=== PATIENT | male | born 1970 | race Caucasian/White ===

== ENCOUNTER 2019-08-30 14:03 | Inpatient (IN) | payer MEDICAID ==
[~2019-08-30] VITALS: Ht 152.4 cm; Wt 68.9 kg
[2019-08-30 14:32] VITALS: BP 100/64
--- NOTE | 2019-08-30 14:48 | NUR ---
49 Y/O M C/C ABDOMINAL PAIN/VOMITING X3 DAYS. PT ALSO COMPLAINTS OF DIZZINESS/BURNING SENSATION WHEN URINATING. PT NKA. HX DM. RX METFORMIN,GLIPIZIDE. PT HAS BEEN COMPLIANT WITH RX. PT NOT TAKEN FLU SHOT; NO ONE SICK AT HOME. SIDE RAIL X1.
[2019-08-30] MEDS ORDERED: NACL 0.9% 1,000 ML IV SCH (15:13)
[2019-08-30] MEDS ORDERED: KETOROLAC 15 MG/ML VIAL IVP ONE (15:15)
[2019-08-30] MEDS ORDERED: ONDANSETRON 4 MG/2 ML VIAL IVP ONE (15:15)
[2019-08-30 15:32] LABS: HEMATOCRIT 40.9 % (36-52); HEMOGLOBIN 13.8 g/dL (12.0-18.0); MEAN CORPUSCULAR HEMOGLOBIN 29 pg (27-31); MEAN CORPUSCULAR HGB CONC 34 g/dL (33-37); MEAN CORPUSCULAR VOLUME 86.4 fL (80-94); PLATELET COUNT (AUTO) 215 K/uL (140-450); RED BLOOD CELL COUNT(AUTO) 4.74 MIL/uL (4.20-6.10); RED CELL DISTRIBUTION WIDTH 12.6 % (11.6-13.7); WHITE BLOOD COUNT (AUTO) 21.8 K/uL (4.8-10.8)
[2019-08-30 15:37] LABS: BILIRUBIN,URINE NEGATIVE (NEGATIVE); BLOOD, URINE 1+ (NEGATIVE); LEUKOCYTE ESTERASE ,URINE TRACE (NEGATIVE); NITRITE, URINE POSITIVE (NEGATIVE); UGLUCOSE 3+ (NEGATIVE)
[2019-08-30 15:39] LABS: APPEARANCE,URINE CLOUDY (CLEAR); COLOR,URINE YELLOW (YELLOW)
[2019-08-30 15:48] LABS: RBC,URINE 0-5 /HPF (0-5); WBC,URINE TOO MANY TO COUNT /HPF (0-5)
[2019-08-30 15:57] LABS: LYMPHOCYTES % (MANUAL) 1 % (20-46); MONOCYTES % (MANUAL) 1 % (5-12); PROTHROMBIN TIME 10.1 secs (10.8-13.4)
[2019-08-30 16:00] LABS: ALBUMIN 2.5 g/dL (3.4-5.0); ANION GAP 15.6 (8-16); CREATININE 1.3 mg/dL (0.7-1.3); POTASSIUM 4.6 mmol/L (3.5-5.1); TOTAL BILIRUBIN 0.8 mg/dL (0.0-1.0)
[2019-08-30] MEDS ORDERED: INSULIN REGULAR, HUMAN 100 UNIT/ML VIAL SUBQ ONE (16:40)
[2019-08-30] MEDS ORDERED: PIPERACILLIN/TAZOBACTAM 3.375 GM in DEXTROSE 5% 50 ML IV ONE (16:40)
[2019-08-30] MEDS ORDERED: NACL 0.9% 1,000 ML IV ONE (16:45)
[2019-08-30] MEDS ORDERED: PIPERACILLIN/TAZOBACTAM 3.375 GM VIAL IV ONE (17:03)
[2019-08-30] MEDS ORDERED: DEXTROSE 50% 50 ML SYR IVP PRN (17:15)
[2019-08-30] MEDS ORDERED: DOCUSATE SODIUM 100 MG GELCAP PO PRN (17:15)
[2019-08-30 18:10] LABS: AMYLASE 15 U/L (25-115); LIPASE 77 U/L (73-393); MAGNESIUM 2.6 mg/dL (1.8-2.4); PHOSPHORUS 2.3 mg/dL (2.5-4.9); THYROID STIMULATING HORMONE 0.55 uIU/mL (0.34-3.74)
[2019-08-30] MEDS ORDERED: BISACODYL 10 MG SUPP RC PRN (18:10)
[2019-08-30] MEDS ORDERED: GLIP10TA3 PO (18:20)
[2019-08-30] MEDS ORDERED: METF1000 PO (18:20)
--- NOTE | 2019-08-30 18:20 | NUR ---
RECEIVED BEDSIDE REPORT FROM ED NURSE. PT RESTING IN BED. ABLE TO MAKE NEEDS KNOWN. RESPIRATIONS EVEN AND UNLABORED WITH NO SOB OR RESPIRATORY DISTRESS. SKIN WARM AND DRY TO TOUCH. IV SITES IN LAC 20G, L HAND 20G, AND R HAND 20G IS CLEAN, DRY, AND INTACT. VITAL SIGNS GATHERED: 111/63 BP, 120HR, 102.3 TEMP, AND 94% SPO2 ON RA. SAFETY MEASURES IN PLACE. WILL CONTINUE TO MONITOR
--- NOTE | 2019-08-30 18:37 | NUR ---
Patient will be admitted to care of [facility]. Admited to TELEMETRY. Will go to room 104B. Belongings list completed. Report to KASSANDRA NAGY.
[2019-08-30 18:57] LABS: LACTATE DEHYDROGENASE 262 U/L (85-227)
[2019-08-30 19:04] LABS: BARBITURATE, URINE NEG. ng/ml (NEG <=200); BENZODIAZEPINE, URINE NEG. ng/mL (NEG <=200); CANNABINOID, URINE NEG. ng/mL (NEG <=50); COCAINE, URINE NEG. ng/mL (NEG <=300); OPIATE, URINE NEG. ng/mL (NEG <=2000); PHENCYCLIDINE SCREEN,URINE NEG. ng/mL (NEG <=25)
--- NOTE | 2019-08-30 19:25 | NUR ---
RECEIVED PT FROM AM SHIFT,HASEEB, ARRIVED IN UNIT EARLIER ENDORSED. PT SLEEPING AT THIS TIME, W/ FAMILY AT BEDSIDE. HISTORY AND PHYSICAL DONE, PT STILL SLEEPING THOUGH. AND SON ANSWERED QUESTIONS. PLACED PT ON LOW BED POSITION. CALL LIGHT WITHIN REACH. POC REVIEWED W/ FAMILY Addendum: 08/30/19 at 2334 by Natalia Patrick RN DELETE NOTE
[2019-08-30] MEDS ORDERED: MORPHINE SULFATE 2 MG/ML SYR IVP SCH (19:30)
--- NOTE | 2019-08-30 19:35 | NUR ---
ENDORSED AT BEDSIDE TO NIGHTSHIFT NURSE. PT RESTING IN BED. RESPIRATIONS EVEN AND UNLABORED WITH NO SOB OR RESPIRATORY DISTRESS. PT IS STABLE.
--- NOTE | 2019-08-30 19:36 | NUR ---
RECEIVED PT FROM AM SHIFT,HASEEB, ARRIVED IN UNIT EARLIER ENDORSED. PT SLEEPING AT THIS TIME, W/ FAMILY AT BEDSIDE. HISTORY AND PHYSICAL DONE, PT STILL SLEEPING THOUGH. AND SON ANSWERED QUESTIONS. PLACED PT ON LOW BED POSITION. CALL LIGHT WITHIN REACH. POC REVIEWED W/ FAMILY
[2019-08-30 21:00] VITALS: BP 111/58
[2019-08-30] MEDS: BLOOD GLUCOSE MONITORING 1 DEV DEV FS SCH (21:00)
[2019-08-30] MEDS ORDERED: cefTRIAXone 1,000 MG VIAL ONE (21:00)
--- NOTE | 2019-08-30 21:00 | NUR ---
VITAL SIGNS TAKEN; PT NOW AWAKE AND C/O OF PAIN IN ABDOMEN 04/11 WILL ADMINISTER PAIN MEDS. PT FEBRILE 102 NOTED. WILL ADMINISTER TYLENOL. PLACED COLD PACKS UNDER PT'S ARMPITS FOR COOLING MEASURES. Addendum: 08/31/19 at 0345 by Natalia Patrick RN AMEND PAIN TO SUPRAPUBIC PAIN Addendum: 08/31/19 at 0514 by Natalia Patrick RN AMEND PAIN TO ABDOMINAL PAIN RIGHT 04/11
[2019-08-30] MEDS: NACL 0.9% 1,000 ML IV SCH ×2 (21:07→21:15)
--- NOTE | 2019-08-30 21:07 | NUR ---
ACKNIWLEDGED NS AT 120 ML PER HR NO BAR CODE W/ PAT, CHARGE NURSE
--- NOTE | 2019-08-30 21:12 | NUR ---
ONE DOSE OF MORPHINE GIVEN NOW. PT HAS JUST AWAKENED NOW, AND C/O OF 04/11 PAIN
--- NOTE | 2019-08-30 21:15 | NUR ---
RECHEKED AGAIN THE NS W/O MART CODE W/ CHARGE NURSE. STILL NOT SCANNING. MANUAL CODE DONE
[2019-08-30] MEDS: metFORMIN 500 MG TAB PO SCH (21:21)
[2019-08-30] MEDS: ATORVASTATIN 20 MG TAB PO SCH (21:22)
[2019-08-30] MEDS: glipiZIDE 10 MG TAB PO SCH (21:22)
[2019-08-30] MEDS: ACETAMINOPHEN 325 MG TAB PO PRN (21:23)
[2019-08-30] MEDS: INSULIN LISPRO SLIDING SCALE 100 UNITS/ML VIAL SUBQ PRN (22:03)
--- NOTE | 2019-08-30 23:35 | NUR ---
PT MORE COMFORTABLE, TEMP RECHECKED AND WENT DOWN TO 99.8 F. WILL MONITOR PATIENT.
[2019-08-30 23:41] VITALS: BP 112/60
[2019-08-31] MEDS: BLOOD GLUCOSE MONITORING 1 DEV DEV FS SCH ×6 (01:00→20:03)
[2019-08-31] MEDS: INSULIN LISPRO SLIDING SCALE 100 UNITS/ML VIAL SUBQ PRN ×6 (01:28→20:24)
[2019-08-31] MEDS: NACL 0.9% 1,000 ML IV SCH ×3 (01:32→18:12)
--- NOTE | 2019-08-31 02:00 | NUR ---
CHECKED ON PATIENT COMFORTABLE SLEEPING
[2019-08-31] MEDS: ACETAMINOPHEN 325 MG TAB PO PRN ×2 (05:08→12:06)
[2019-08-31] MEDS: HYDROcodone/APAP 5/325 MG 1 TAB TAB PO PRN ×3 (05:09→14:28)
[2019-08-31 06:00] VITALS: BP 131/75
[2019-08-31 07:18] LABS: BASOPHILS # (AUTO) 0.1 K/uL (0.00-0.22); BASOPHILS % (AUTO) 0.3 % (0.0-2.0); HEMATOCRIT 36.2 % (36-52); HEMOGLOBIN 12.3 g/dL (12.0-18.0); LYMPHOCYTES # (AUTO) 0.6 K/uL (2.0-11.5); LYMPHOCYTES % (AUTO) 3.4 % (20.5-51.1); MEAN CORPUSCULAR HEMOGLOBIN 29 pg (27-31); MEAN CORPUSCULAR HGB CONC 34 g/dL (33-37); MEAN CORPUSCULAR VOLUME 86.1 fL (80-94); NEUTROPHILS # (AUTO) 15.8 K/uL (1.8-7.7); NEUTROPHILS % (AUTO) 90.3 % (42.2-75.2); PLATELET COUNT (AUTO) 179 K/uL (140-450); RED CELL DISTRIBUTION WIDTH 12.7 % (11.6-13.7); WHITE BLOOD COUNT (AUTO) 17.5 K/uL (4.8-10.8)
--- NOTE | 2019-08-31 07:20 | NUR ---
RECEIVED REPORT FROM NIGHT NURSE. PT IN STABLE CONDITION, AAOX4, NO DISTRESS NOTED, REPORTS LOWER RIGHT ABDOMINAL PAIN. RESPIRATIONS EVEN AND UNLABORED ON ROOM AIR. IV IN PLACE PATENT AND ASYMPTOMATIC INFUSING PER ORDER IN R H 20G. IV PRESENT IN L AC 20G AND L H 20G SALINE LOCKED. FAMILY MEMBER AT THE BEDSIDE. SAFETY MEASURES IN PLACE. CALL LIGHT WITHIN REACH, BED IN LOW POSITION. WILL CONTINUE TO MONITOR.
--- NOTE | 2019-08-31 07:20 | NUR ---
ENDORSED TO NEXT NURSE FOR CONTINUITY OF CARE, STILL FEBRILE
[2019-08-31 07:24] LABS: MAGNESIUM 2.5 mg/dL (1.8-2.4)
[2019-08-31] MEDS: LACTOBACILLUS RHAMNOSUS GG 1 EACH CAP PO SCH (08:29)
[2019-08-31] MEDS: glipiZIDE 10 MG TAB PO SCH ×2 (08:29→20:25)
[2019-08-31] MEDS: metFORMIN 500 MG TAB PO SCH ×2 (08:29→20:25)
--- NOTE | 2019-08-31 08:29 | NUR ---
PATIENT HAS BEEN SCREENED AND CATEGORIZED HIGH NUTRITION RISK. PATIENT WILL BE SEEN WITHIN 1-2 DAYS OF ADMISSION. 08/31/19-09/01/[address]
[2019-08-31 08:47] LABS: ANION GAP 12.9 (8-16); CREATININE 1.1 mg/dL (0.7-1.3); POTASSIUM 3.9 mmol/L (3.5-5.1)
[2019-08-31 08:56] LABS: CHOL/HDL RATIO 11.6 (1-4.5)
--- NOTE | 2019-08-31 09:42 | NUR ---
MEDICATIONS ADMINISTERED PER ORDER. PT TOLERATED WELL, NO DISTRESS NOTED. SAFETY MEASURES IN PLACE, CALL LIGHT WITHIN REACH, WILL CONTINUE TO MONITOR.
--- NOTE | 2019-08-31 12:04 | NUR ---
PT VITAL SIGNS MONITORED AT THIS TIME. O2 SAT WAS 90%. PLACED PT ON 3L O2 VIA NC, O2 SAT IS 95%. PT IN STABLE CONDITION. DENIES PAIN. WILL CONTINUE TO MONITOR.
--- NOTE | 2019-08-31 13:54 | NUR ---
08/31/19 RD INITIAL ASSESSMENT COMPLETED PLEASE REFER TO NUTRITION ASSESSMENT UNDER CARE ACTIVITY FOR ESTIMATED NUTRITIONAL NEEDS. 1. CONTINUE CCHO 60GM DIET TOLERATED 2. DIET HEALTH SHAKE WILL BE GIVEN WITH MEALS 3. IF PO INTAKE CONTINUES <75% RECOMMEND GLUCERNA BID 4. RD TO FOLLOW-UP 3-5 DAYS, MODERATE RISK PHILL CAS[address] RD
--- NOTE | 2019-08-31 14:22 | NUR ---
PT PRESENTS A TEMPERATURE OF 101.1, WILL MEDICATE WITH TYLENOL FOR FEVER. FAMILY AT THE BEDSIDE.
[2019-08-31 14:24] VITALS: BP 169/75
[2019-08-31] MEDS: ONDANSETRON 4 MG/2 ML VIAL IM/IVP PRN ×3 (14:29→19:51)
[2019-08-31] MEDS ORDERED: KETOROLAC 15 MG/ML VIAL IM PRN (15:00)
[2019-08-31] MEDS: KETOROLAC 30 MG/ML VIAL IVP PRN (15:57)
--- NOTE | 2019-08-31 16:12 | NUR ---
PT TEMPERATURE CONTINUES TO RISE TO 101.9. MD ORDERED IV TORADOL FOR MANAGEMENT OF FEVER. SAFETY MEASURES IN PLACE. CALL LIGHT WITHIN REACH, WILL CONTINUE TO MONITOR.
--- NOTE | 2019-08-31 18:24 | NUR ---
OFFERED PT FOOD TRAY. TEMP HAS FALLEN TO 99.1. WILL CONTINUE TO MONITOR.
--- NOTE | 2019-08-31 19:30 | NUR ---
REPORT GIVEN TO NIGHT NURSE FOR CONTINUITY OF CARE.
--- NOTE | 2019-08-31 19:31 | NUR ---
RECEIVED REPORT FROM AM LEAH, SHAYAN. AAOX4, AMBULATORY, WITH LOWER RIGHT ABDOMINAL PAIN WILL MEDICATE. RESPIRATIONS EVEN AND UNLABORED ON ROOM AIR. WITH IVF ON THE R AC INFUSING AT 120 ML/HR. WITH IV SITE IN L AC 20G AND L H 20G SALINE LOCKED. FAMILY MEMBERS AT THE BEDSIDE. SAFETY MEASURES IN PLACE. CALL LIGHT WITHIN REACH, BED IN LOW POSITION. WILL CONTINUE TO MONITOR.
--- NOTE | 2019-08-31 19:47 | NUR ---
BAR CODE OF CART 2 COW MACHINE NOT WORKING. DID MANUAL CODING. WILL REPORT
[2019-08-31] MEDS: MORPHINE SULFATE 2 MG/ML SYR IVP PRN (19:50)
--- NOTE | 2019-08-31 19:51 | NUR ---
PT VOMITED X 2 MEDIUM AMOUNT WITH SOLID FOOD CONTENTS. GIVEN ONDASETRON. GAVE HEALTH TEACHINGS NO ORAL FLUIDS/ FOOD YET FOR NOW UNTIL SYMPTOMS SUBSIDE
[2019-08-31 20:00] VITALS: BP 137/63
--- NOTE | 2019-08-31 20:04 | NUR ---
RECEIVED FROM LAB JAZMYNE, BLOOD CULTURE- GRAM NEGATIVE RODS/AEROBIC . DR. CORREIA AWARE. TO INFORM DR. SÁNCHEZ
[2019-08-31] MEDS: ATORVASTATIN 20 MG TAB PO SCH (20:25)
--- NOTE | 2019-08-31 23:22 | NUR ---
PT SLEEPING, NO COMPLAINTS AT THIS TIME
[2019-09-01] VITALS: BP 143/57
[2019-09-01] MEDS: BLOOD GLUCOSE MONITORING 1 DEV DEV FS SCH ×7 (00:21→23:42)
[2019-09-01] MEDS: INSULIN LISPRO SLIDING SCALE 100 UNITS/ML VIAL SUBQ PRN ×5 (00:23→20:56)
[2019-09-01] MEDS: NACL 0.9% 1,000 ML IV SCH ×4 (01:55→21:30)
--- NOTE | 2019-09-01 02:00 | NUR ---
CHANGED IVF OF PATIENT, PT ASLEEP BUT EASILY AWAKENED NO COMPLAINTS AT THIS TIME. NO RESPIRATORY DISTRESS
--- NOTE | 2019-09-01 02:54 | NUR ---
PT C/O OF PAIN 01/09 R ABD PAIN ALSO RUNNING A TEMP OF 102. 7. WILL ADMINISTER NORCO.
--- NOTE | 2019-09-01 02:55 | NUR ---
PT NAUSEOUS, WILL ADMINISTER ONDANSETRON (ZOFRAN).
[2019-09-01] MEDS: HYDROcodone/APAP 5/325 MG 1 TAB TAB PO PRN ×3 (03:00→15:03)
[2019-09-01 04:00] VITALS: BP 142/56
--- NOTE | 2019-09-01 04:00 | NUR ---
FREQUENT ROUNDING DONE; TEMP AT 99.5 AFTER ADMINISTRATION OF NORCO Addendum: 09/01/19 at 0752 by Natalia Patrick RN AMEND TO 99.3
--- NOTE | 2019-09-01 06:58 | NUR ---
PT AWAKE O X 4. WILL ENDORSE TO NEXT SHIFT. MONITOR FOR FEVER
--- NOTE | 2019-09-01 06:59 | NUR ---
DR. CORREIA AWARE THAT THE KETOROLAC WAS NOT GIVEN, PT HAD ABDOMINAL PAIN AT THE SAME TIME SO I GAVE THE NORCO, TEMP WAS RECHECKED AND IT WENT DOWN TO 99.3.F
--- NOTE | 2019-09-01 07:20 | NUR ---
RECEIVED REPORT FROM NIGHT NURSE. PT IN STABLE CONDITION. PT HAS RIGHT ABDOMINAL PAIN, NO DISTRESS NOTED AT THIS TIME. IV IN PLACE R HAND 20G PATENT ASYMPTOMATIC AND INSFUSING PER ORDER. LHAND 20G AND LEFT AC 20G PATENT AND ASYMPTOMATIC SALINE FLUSHED, SALINE LOCKED. RESPIRATIONS EVEN AND UNLABORED ON ROOM AIR. BED IN LOW POSITION, SAFETY MEASURES IN PLACE, CALL LIGHT WITHIN REACH. WILL CONTINUE TO MONITOR.
[2019-09-01 07:33] LABS: BASOPHILS # (AUTO) 0.1 K/uL (0.00-0.22); BASOPHILS % (AUTO) 0.6 % (0.0-2.0); EOSINOPHILS # (AUTO) 0.1 K/uL (0-0.4); EOSINOPHILS % (AUTO) 0.8 % (0.0-4.0); HEMATOCRIT 35.9 % (36-52); LYMPHOCYTES # (AUTO) 0.9 K/uL (2.0-11.5); LYMPHOCYTES % (AUTO) 5.2 % (20.5-51.1); MEAN CORPUSCULAR HEMOGLOBIN 29 pg (27-31); MEAN CORPUSCULAR HGB CONC 33 g/dL (33-37); MEAN CORPUSCULAR VOLUME 86.5 fL (80-94); MONOCYTES # (AUTO) 1.3 K/uL (0.8-1.0); MONOCYTES % (AUTO) 7.8 % (1.7-9.3); NEUTROPHILS # (AUTO) 14.3 K/uL (1.8-7.7); NEUTROPHILS % (AUTO) 85.6 % (42.2-75.2); PLATELET COUNT (AUTO) 168 K/uL (140-450); RED BLOOD CELL COUNT(AUTO) 4.16 MIL/uL (4.20-6.10); RED CELL DISTRIBUTION WIDTH 12.9 % (11.6-13.7); WHITE BLOOD COUNT (AUTO) 16.7 K/uL (4.8-10.8)
[2019-09-01 07:39] LABS: POTASSIUM 3.5 mmol/L (3.5-5.1)
[2019-09-01 07:41] LABS: ANION GAP 10.2 (8-16); CARBON DIOXIDE 26.3 mmol/L (21-32); MAGNESIUM 2.2 mg/dL (1.8-2.4); PHOSPHORUS 1.6 mg/dL (2.5-4.9)
[2019-09-01 08:00] VITALS: BP 126/76
[2019-09-01] MEDS: glipiZIDE 10 MG TAB PO SCH ×2 (08:09→20:32)
[2019-09-01] MEDS: metFORMIN 500 MG TAB PO SCH ×2 (08:09→20:32)
[2019-09-01] MEDS: LACTOBACILLUS RHAMNOSUS GG 1 EACH CAP PO SCH (08:10)
[2019-09-01] MEDS: ONDANSETRON 4 MG/2 ML VIAL IM/IVP PRN (08:18)
--- NOTE | 2019-09-01 09:00 | NUR ---
MEDICATIONS ADMINISTERED PER ORDER. PT TOELRATED WLL, NO DISTRESS NOTED. WILL CONTINUE TO MONITOR.
[2019-09-01] MEDS: INSULIN LANTUS 100 UNITS/ML 10 ML VIAL SUBQ SCH (09:33)
[2019-09-01 09:39] LABS: AMYLASE 20 U/L (25-115); LIPASE 80 U/L (73-393)
--- NOTE | 2019-09-01 10:00 | NUR ---
GAVE REPORT TO KIANNA FOR CONTINUITY OF CARE.
--- NOTE | 2019-09-01 10:05 | NUR ---
RECEIVED BEDSIDE REPORT FROM PM RN PT AWAKE IN BED PT APPEARS STABLE AND IN NO APPARENT DISTRESS. PT FAMILY AT BEDSIDE ALL SAFETY MEASURES ARE IN PLACE. INTRODUCED MYSELF AND EXPLAINED I WILL BE CONTINUING WITH CARE TODAY. INFORMED FAMILY TO LET ME KNOW OF ANY NEEDS.
[2019-09-01] MEDS: MORPHINE SULFATE 2 MG/ML SYR IVP PRN ×2 (11:14→20:48)
--- NOTE | 2019-09-01 11:16 | NUR ---
PT COMPLAINED OF 8/10 PAIN IN RIGHT ABDOMEN. ADMINISTERED 2MG MORPHINE IVP PER MD ORDERS PT DAUGHTER AT BEDSIDE. PROVIDED EDUCATION ON MEDICATION ADMINISTRATION AND SIDE EFFECTS PT AND FAMILY VERBALIZED UNDERSTANDING WILL CONTINUE TO MONITOR.
--- NOTE | 2019-09-01 11:46 | NUR ---
MORPHINE REEVALUATION. PT STATED PAIN IS IMPROVING PT STATED PAIN IS NOW A 4/10 AT THE MOMENT EDUCATED PT ON THE IMPORTANCE OF HAVING THE MEDICATION BEFORE THE PAIN GETS TO UNBEARABLE
--- NOTE | 2019-09-01 12:13 | NUR ---
DISCHARGE PLANNING: A 49 Y/O MALE PATIENT FROM HOME, WHO CAME IN DUE TO ABDOMINAL PAIN,DYSURIA AND WEAKNESS. PAST MEDICAL HISTORY INCLUDE DM II. INITIAL DIAGNOSIS OF SEPSIS AND URINARY TRACT INFECTION. CURRENT LABS INCLUDE WBC 16.7, H/H 12.0/35.9, NA/K 132/3.5, BUN/CREA 16/1.0. MRSA NARES, BLOOD AND URINE C/S PENDING. NO CONSULTS AT THIS TIME. ON ZOSYN. DC PLAN TO HOME ONCE STABLE. Addendum: 09/04/19 at 1404 by Aixa Hunt CM RECEIVED AN ORDER TO DC TO SNF FOR IV ANTIBIOTICS X 10DAYS TOTAL. PATIENT HAVE MEDICAL RESTRICTED, NO SS. DR. SÁNCHEZ MADE AWARE. Addendum: 09/05/19 at 1104 by Aixa Hunt CM CURRENT LABS ON WBC 19.1, H/H 11.6/33.9, NA/K 139/3.2 AND MAG 1.7. ON PYRIDIUM AND MEROPENEM. DC PLAN PENDING ON PATIENT'S RESPONSE TO TREATMENT. Addendum: 09/05/19 at 1149 by Aixa Hunt CM CONTACTED ADRIAN OF [facility] AT [phone], INQUIRED IF THEY CAN ASSIST IV MEROPENEM FOR THIS PATIENT. HE STATED TO GO AHEAD AND FAX IT OVER TO EDWINA AT [phone] TO REVIEW. ORDER SENT TO THE PROVIDED FAX NUMBER. Addendum: 09/05/19 at 1623 by Aixa Hunt CM RECEIVED A CALL FROM EDWINA AT [facility], SHE STATED THEY CAN PROVIDE THE ANTIBIOTICS ONCE THERE IS AN ACCEPTING FACILITY. PER JAKE WATTS [facility], THEY WILL REVIEW THE REFERRAL. WILL FOLLOW UP. Addendum: 09/06/19 at 1430 by Aixa Hunt CM [id number]: RECEIVED A CALL FROM JESSICA OF [facility], ASKING IF WE HAVE AN ACCEPTING SNF FOR THIS PATIENT. UPDATED HIM OF THE PATIENT'S CONDITION. HE STATED TO CALL THEM IF IN ANY CASE WE FIND AN ACCEPTING FACILITY. HE PROVIDED ME WITH HIS PHONE NUMBER [phone]. Addendum: 09/07/19 at 1554 by Aixa Hunt CM CURRENT LABS INCLUDE WBC 17.2, H/H 11.9/35.5, NA/K 137/4.3, BUN/CREA 8.0.9. STILL ON MERREM IV. ID CONSULT IN PLACE. DC PLAN TO SNF FOR IV ANTIBIOTICS. PENDING PLACEMENT. Addendum: 09/08/19 at 1506 by Aixa Hunt CM PER JAKE WATTS [facility], NO ISO BED AT THIS TIME. DR. MARTIN MADE AWARE. SHE SAID SHE WILL DISCUSS WITH DR. SÁNCHEZ IF WE CAN COLONIZE. Addendum: 09/08/19 at 1523 by Aixa Hunt CM PER DR. MARTIN, SHE SPOKE WITH DR. SÁNCHEZ REGARDING COLONIZATION. ID STATED THAT PATIENT MIGHT BE DISCHARGING TO HOME AFTER ANTIBIOTIC DOSE IN AM. Addendum: 09/09/19 at 1217 by Shayna Godinez CM DC PLANNING: PER DR SÁNCHEZ CONTINUE IV MEROPENEM FOR A TOTAL OF 10 DAYS (LAST DOSE ON WEDNESDAY09/11/19) DC PLAN UNABLE TO FIND SNF FAXED TO [facility], [facility] ,ALL STATED NO ISO BED CM TO FOLLOW.
[2019-09-01] MEDS ORDERED: PIPERACILLIN/TAZOBACTAM 3.375 GM in DEXTROSE 5% 50 ML IV SCH (13:00)
[2019-09-01] MEDS ORDERED: SODIUM PHOSPHATE 15 MMOLE in NACL 0.9% 250 ML IV SCH (13:00)
--- NOTE | 2019-09-01 13:13 | NUR ---
ADMINISTERED 4 UNITS HUMALOG IN RIGHT UPPER ARM SUBQ FOR FINGERSTICK GLUCOSE OF 229. HUNG IV PIGGY BACK ANTIBIOTIC ZOSYN WELL IV SITE PATENT SHOWS NO SIGNS OF INFILTRATION OR INFLAMMATION. PT FAMILY AT BEDSIDE. PROVIDED EDUCATION ON MEDICATIONS AND SIDE EFFECTS. WILL CONTINUE TO MONITOR.
[2019-09-01] MEDS: KETOROLAC 30 MG/ML VIAL IVP PRN (13:49)
--- NOTE | 2019-09-01 15:46 | NUR ---
FREQUENT ROUNDING ON PT PT APPEARS STABLE AND IN NO APPARENT DISTRESS. ALL SAFETY MEASURES ARE IN PLACE WILL CONTINUE TO MONITOR.
[2019-09-01 16:05] VITALS: BP 117/78
--- NOTE | 2019-09-01 17:51 | NUR ---
FREQUENT ROUNDING ON PT PT APPEARS STABLE AND IN NO APPARENT DISTRESS ALL SAFETY MEASURES ARE IN PLACE WILL CONTINUE TO MONITOR.
--- NOTE | 2019-09-01 19:27 | NUR ---
ENDORSED PT TO PM RN PT AWAKE IN BED PT FAMILY AT BEDSIDE ALL SAFETY MEASURES ARE IN PLACE,
--- NOTE | 2019-09-01 19:28 | NUR ---
REPORT RECEIVED FROM AM NURSE AT BEDSIDE. PT IN STABLE CONDITION. AAOX4. INTRODUCED SELF TO PT. BOARD UPDATED. PT HAS COMPLAINTS OF PAIN. WILL MEDICATE. NO SOB. AFEBRILE. PT IS AMBULATORY. IV SITE L HAND 20G SL PATENT AND INTACT. R HAND 20G RUNNING NS@120ML/HR PATENT AND INTACT. SKIN WARM, DRY, AND INTACT WITH NO OPEN WOUNDS. BED LOCKED IN LOW POSITION. CALL KAPOOR WITHIN REACH. SAFETY PRECAUTION IN PLACE. ALL NEEDS MET AT THIS TIME.
[2019-09-01] MEDS: MEROPENEM 1,000 MG in NACL 0.9% 100 ML IV SCH (20:31)
--- NOTE | 2019-09-01 20:31 | NUR ---
JORGE HUNG AND RUNNING. HEPARIN GIVEN SUBQ. LIPITOR, GLUCOTROL, AND METFORMIN GIVEN PO. BS 220. 4 UNITS OF HUMALOG GIVEN. PT TOLERATED WELL.
[2019-09-01] MEDS: ATORVASTATIN 20 MG TAB PO SCH (20:32)
--- NOTE | 2019-09-01 20:48 | NUR ---
MORPHINE GIVEN FOR 8/10 PAIN. PT TOLERATED WELL.
--- NOTE | 2019-09-01 22:15 | NUR ---
PT IN BED WATCHING TV. NO S/S OF DISTRESS NOTED. WILL CONTINUE TO MONITOR.
--- NOTE | 2019-09-01 23:42 | NUR ---
BS 169. INSULIN WILL BE HELD DUE TO PATIENT HAVING GLUCOTROL AND METFORMIN@2100. NOTIFIED. AGREES WITH NON ADMINISTRATION OF MEDICATION.
[2019-09-02] VITALS: BP 138/75
--- NOTE | 2019-09-02 02:00 | NUR ---
PT SLEEPING COMFORTABLY BUT AROUSABLE. NO S/S OF DISTRESS NOTED. NO COMPLAINTS OF PAIN. NO SOB. AFEBRILE. WILL CONTINUE TO MONITOR.
[2019-09-02] MEDS: MORPHINE SULFATE 2 MG/ML SYR IVP PRN ×2 (03:09→18:04)
--- NOTE | 2019-09-02 03:09 | NUR ---
MORPHINE GIVEN FOR 9/10 ABDOMINAL PAIN. ZOFRAN GIVEN FOR NAUSEA. PT TOLERATED WELL.
[2019-09-02] MEDS: ONDANSETRON 4 MG/2 ML VIAL IM/IVP PRN ×3 (03:13→17:59)
[2019-09-02] MEDS: KETOROLAC 30 MG/ML VIAL IVP PRN (03:27)
--- NOTE | 2019-09-02 03:27 | NUR ---
TORADOL GIVEN FOR TEMPERATURE OF 100.6. BS 150. NO INSULIN COVERAGE NEEDED. PT TOLERATED WELL.
[2019-09-02] MEDS: BLOOD GLUCOSE MONITORING 1 DEV DEV FS SCH ×6 (03:31→23:04)
[2019-09-02] MEDS: MEROPENEM 1,000 MG in NACL 0.9% 100 ML IV SCH ×3 (04:29→20:24)
--- NOTE | 2019-09-02 04:29 | NUR ---
JORGE HUNG AND RUNNING. PT TOLERATING WELL.
--- NOTE | 2019-09-02 06:20 | NUR ---
PT SLEEPING COMFORTABLY BUT AROUSABLE. PT IN STABLE CONDITION.
[2019-09-02 06:48] LABS: BASOPHILS # (AUTO) 0.1 K/uL (0.00-0.22); BASOPHILS % (AUTO) 0.6 % (0.0-2.0); EOSINOPHILS # (AUTO) 0.1 K/uL (0-0.4); EOSINOPHILS % (AUTO) 0.8 % (0.0-4.0); HEMATOCRIT 34.2 % (36-52); HEMOGLOBIN 11.6 g/dL (12.0-18.0); LYMPHOCYTES # (AUTO) 0.9 K/uL (2.0-11.5); LYMPHOCYTES % (AUTO) 7.3 % (20.5-51.1); MEAN CORPUSCULAR HEMOGLOBIN 29 pg (27-31); MEAN CORPUSCULAR HGB CONC 34 g/dL (33-37); MEAN CORPUSCULAR VOLUME 85.2 fL (80-94); MONOCYTES # (AUTO) 1.2 K/uL (0.8-1.0); MONOCYTES % (AUTO) 10.2 % (1.7-9.3); NEUTROPHILS # (AUTO) 9.9 K/uL (1.8-7.7); NEUTROPHILS % (AUTO) 81.1 % (42.2-75.2); PLATELET COUNT (AUTO) 180 K/uL (140-450); RED BLOOD CELL COUNT(AUTO) 4.01 MIL/uL (4.20-6.10); RED CELL DISTRIBUTION WIDTH 12.7 % (11.6-13.7); WHITE BLOOD COUNT (AUTO) 12.2 K/uL (4.8-10.8)
--- NOTE | 2019-09-02 07:05 | NUR ---
RECEIVED PT FROM ABORIGINAL LIAISON OFFICER NURSEJIMBO, PT IS AWAKE AND ALERT AND LYING ON THE BED WITH FEELING OF NAUSEA, PERIPHERAL ,LINES ON THE RT HAND G. 20 WITH IVF NS INFUSING AT 120ML/HR, AND ON THE LEFT HAND G. 20 ON SALINE LOCK, PT IS ON ROOM AIR AND AMBULATES, ALERT ORIENTEDX4 AND NO SIGN OF DISTRESS NOTED. WILL MONITOR PT.
[2019-09-02 07:37] LABS: ANION GAP 11.4 (8-16); CARBON DIOXIDE 26.9 mmol/L (21-32); CREATININE 1.1 mg/dL (0.6-1.3); POTASSIUM 3.3 mmol/L (3.5-5.1)
[2019-09-02 07:50] LABS: PHOSPHORUS 1.9 mg/dL (2.5-4.9)
[2019-09-02 08:00] VITALS: BP 132/62
[2019-09-02] MEDS: metFORMIN 500 MG TAB PO SCH ×2 (08:59→20:25)
[2019-09-02] MEDS: HYDROcodone/APAP 5/325 MG 1 TAB TAB PO PRN (08:59)
[2019-09-02] MEDS: glipiZIDE 10 MG TAB PO SCH ×2 (08:59→20:25)
[2019-09-02] MEDS: LACTOBACILLUS RHAMNOSUS GG 1 EACH CAP PO SCH (08:59)
--- NOTE | 2019-09-02 08:59 | NUR ---
PT WAS GIVEN THE SCHEDULED AM MEDICATIONS NOW. WILL MONITOR PT.
[2019-09-02] MEDS: INSULIN LANTUS 100 UNITS/ML 10 ML VIAL SUBQ SCH (09:03)
[2019-09-02] MEDS ORDERED: POTASSIUM CHLORIDE 10 MEQ TABER PO SCH (09:27)
[2019-09-02] MEDS ORDERED: POLYETHYLENE GLYCOL 17 GM/PKT PO SCH (09:54)
[2019-09-02] MEDS: ACETAMINOPHEN 650 MG/20.3 ML UDC PO PRN ×2 (10:08→17:58)
[2019-09-02] MEDS: SODIUM PHOS / POTASSIUM PHOS 1 PKT PDR PO SCH (10:09)
--- NOTE | 2019-09-02 12:21 | NUR ---
PT'S BLOOD GLUCOSE CHECKED ONE AND RESULT IS 205 AND INSULIN COVERAGE WAS GIVEN.
[2019-09-02] MEDS: INSULIN LISPRO SLIDING SCALE 100 UNITS/ML VIAL SUBQ PRN ×3 (12:47→20:45)
[2019-09-02] MEDS: NACL 0.9% 1,000 ML IV SCH ×2 (13:13→21:54)
--- NOTE | 2019-09-02 13:13 | NUR ---
PT WAS GIVEN IV MERREM NOW VIA PIGGYBACK, FAMILY ON TH BEDSIDE, PT VOMITED AND NO SIGN OF DISTRESS NOTED, WILL MONITOR PT.
[2019-09-02 16:00] VITALS: BP 148/60
--- NOTE | 2019-09-02 16:00 | NUR ---
BLOOD GLUCOSE CHECK DONE AND IS 159 AND INSULIN 2 UNITS WAS GIVEN ON THE RT UA. WILL MONITOR PT
--- NOTE | 2019-09-02 17:34 | NUR ---
LAB CALLED TO REPORT THAT PT IS POSITIVE FOR E. COLI IN BLOOD CULTURE, DR. RO WAS INFORMED.
--- NOTE | 2019-09-02 19:30 | NUR ---
ENDORSED PT TO FIELD MARKETING COORDINATOR NURSE JIMBO FOR CONTINUITY OF CARE.
--- NOTE | 2019-09-02 19:31 | NUR ---
REPORT RECEIVED FROM AM NURSE AT BEDSIDE. PT IN STABLE CONDITION. AAOX4. INTRODUCED SELF TO PT. BOARD UPDATED. NO COMPLAINTS OF PAIN. NO SOB. AFEBRILE. PT IS AMBULATORY. PT IS ON CONTACT PRECAUTION FOR E. COLI OF THE BLOOD. IV SITE R HAND 20G RUNNING NS@120ML/HR PATENT AND INTACT. L HAND 20G SL PATENT AND INTACT. SKIN WARM, DRY, AND INTACT WITH NO OPEN WOUNDS. BED LOCKED IN LOW POSITION. CALL KAPOOR WITHIN REACH. SAFETY PRECAUTION IN PLACE. ALL NEEDS MET AT THIS TIME.
[2019-09-02] MEDS: ATORVASTATIN 20 MG TAB PO SCH (20:24)
--- NOTE | 2019-09-02 20:24 | NUR ---
JORGE ANSARI AND RUNNING. METFORMIN, GLIPIZIDE, LIPITOR, AND METAMUCIL GIVEN PO. HEPARIN GIVEN SUBQ. BS 180. 2 UNITS OF HUMALOG GIVEN. PT TOLERATED WELL.
[2019-09-02] MEDS: PSYLLIUM 12.2 GM/PKT PO SCH (20:25)
--- NOTE | 2019-09-02 21:45 | NUR ---
PT IN LAYING IN BED WITH FAMILY AT BEDSIDE. NO S/S OF DISTRESS NOTED. WILL CONTINUE TO MONITOR.
--- NOTE | 2019-09-02 23:04 | NUR ---
BS 145. NO INSULIN COVERAGE NEEDED.
[2019-09-03] VITALS: BP 144/74
[2019-09-03] MEDS: ACETAMINOPHEN 650 MG/20.3 ML UDC PO PRN ×2 (00:59→08:39)
--- NOTE | 2019-09-03 00:59 | NUR ---
TYL GIVEN PO FOR FEVER OF 101.3. PT TOLERATED WELL.
--- NOTE | 2019-09-03 02:40 | NUR ---
PT SLEEPING COMFORTABLY BUT AROUSABLE. NO S/S OF DISTRESS NOTED. RESPIRATIONS EVEN, UNLABORED, AND WNL. WILL CONTINUE TO MONITOR.
[2019-09-03] MEDS: BLOOD GLUCOSE MONITORING 1 DEV DEV FS SCH ×5 (04:16→21:01)
--- NOTE | 2019-09-03 04:16 | NUR ---
JORGE HUNG AND RUNNING. BS 119. NO INSULIN COVERAGE NEEDED.
[2019-09-03] MEDS: MEROPENEM 1,000 MG in NACL 0.9% 100 ML IV SCH ×3 (04:17→20:51)
[2019-09-03] MEDS: NACL 0.9% 1,000 ML IV SCH ×2 (05:59→12:52)
[2019-09-03 06:19] LABS: HEMATOCRIT 35.7 % (36-52); MEAN CORPUSCULAR HEMOGLOBIN 29 pg (27-31); MEAN CORPUSCULAR HGB CONC 34 g/dL (33-37); MEAN CORPUSCULAR VOLUME 85.7 fL (80-94); PLATELET COUNT (AUTO) 226 K/uL (140-450); RED BLOOD CELL COUNT(AUTO) 4.17 MIL/uL (4.20-6.10); RED CELL DISTRIBUTION WIDTH 12.7 % (11.6-13.7); WHITE BLOOD COUNT (AUTO) 14.2 K/uL (4.8-10.8)
--- NOTE | 2019-09-03 06:45 | NUR ---
PT SLEEPING COMFORTABLY WITH FAMILY AT BEDSIDE. PT IN STABLE CONDITION.
[2019-09-03 06:46] LABS: ANION GAP 9.1 (8-16); CARBON DIOXIDE 27.4 mmol/L (21-32); CREATININE 0.9 mg/dL (0.6-1.3); POTASSIUM 3.5 mmol/L (3.5-5.1)
[2019-09-03 06:49] LABS: BASOPHILS % (MANUAL) 0 % (0-2); EOSINOPHILS % (MANUAL) 0 % (0-4); LYMPHOCYTES % (MANUAL) 8 % (20-46); MONOCYTES % (MANUAL) 14 % (5-12)
[2019-09-03 06:52] LABS: MAGNESIUM 1.9 mg/dL (1.8-2.4); PHOSPHORUS 1.9 mg/dL (2.5-4.9)
--- NOTE | 2019-09-03 07:10 | NUR ---
RECEIVED PT FROM LINSEED OIL PRESS TENDER NURSEJIMBO PT IS AWAKE AND SEATED ON THE BED DANGLED ON THE FLOOR, AND DAUGHTER ON THE BEDSIDE, PT IS ON ROOM AIR, ,PERIPHERAL LINES ON THE RT HAND G. 20 WITH NS INFUSING AT 120ML/HR, AND ON THE LEFT HAND G. 20 ON SALINE LOCK, FLUSHED WITH SALINE AND BOTH PATENT, PT IS ON CONTACT IN ISOLATION FOR POSITIVE E. COLI IN THE BLOOD CULTURE, PT C/O PAIN RATE OF 6/10 AND WILL MEDICATE, TEMP. IS 102., WILL CONTINUE TO BE MONITORED.
[2019-09-03 08:00] VITALS: BP 149/78
[2019-09-03] MEDS: ONDANSETRON 4 MG/2 ML VIAL IM/IVP PRN ×3 (08:37→21:07)
[2019-09-03] MEDS: HYDROcodone/APAP 5/325 MG 1 TAB TAB PO PRN ×2 (08:44→21:07)
[2019-09-03] MEDS: LACTOBACILLUS RHAMNOSUS GG 1 EACH CAP PO SCH (08:45)
[2019-09-03] MEDS: glipiZIDE 10 MG TAB PO SCH ×2 (08:45→20:50)
[2019-09-03] MEDS: INSULIN LANTUS 100 UNITS/ML 10 ML VIAL SUBQ SCH (08:48)
--- NOTE | 2019-09-03 08:48 | NUR ---
PT WAS GIVEN THE SCHEDULED AM MEDICATIONS NOW, PARAMETERS CHECKED AND PT TOLERATED IT, PT C/O PAIN RATE OF 6/10 AND WAS MEDICATED, GIVEN MEDICATIONS FOR NAUSEA AND FEVER WELL, WILL CONTINUE TO MONITOR PT.
[2019-09-03] MEDS: SODIUM PHOS / POTASSIUM PHOS 1 PKT PDR PO SCH ×3 (08:50→20:49)
[2019-09-03] MEDS: PSYLLIUM 12.2 GM/PKT PO SCH ×2 (08:54→20:49)
[2019-09-03] MEDS: metFORMIN 500 MG TAB PO SCH ×2 (09:00→20:50)
[2019-09-03] MEDS ORDERED: POLYETHYLENE GLYCOL 17 GM/PKT PO SCH (10:16)
[2019-09-03] MEDS: KETOROLAC 30 MG/ML VIAL IVP PRN (11:51)
--- NOTE | 2019-09-03 11:51 | NUR ---
PT WAS GIVEN PAIN MEDICATION VIA IV PUSH FOR C/O PAIN RATE OF 6/10, WILL MONITOR PT.
[2019-09-03 12:00] VITALS: BP 156/86
--- NOTE | 2019-09-03 14:09 | NUR ---
PT WAS GIVEN IVPB MEDICATION NOW, WILL MONITOR PT.
[2019-09-03] MEDS ORDERED: PHENAZOPYRIDINE 100 MG TAB PO PRN (16:10)
[2019-09-03] MEDS: INSULIN LISPRO SLIDING SCALE 100 UNITS/ML VIAL SUBQ PRN ×2 (17:30→21:00)
--- NOTE | 2019-09-03 17:31 | NUR ---
PT WAS GIVEN 2 UNITS ON THE LEFT UA FOR THE BLOOD GLUCOSE OF 187, ZOFRAN WAS GIVEN VIA IV PUSH FOR THE FEELING OF NAUSEA, WILL MONITOR PT.
[2019-09-03] MEDS: MORPHINE SULFATE 2 MG/ML SYR IVP PRN (17:47)
--- NOTE | 2019-09-03 17:47 | NUR ---
PT CO PAIN RATE OF 10/10 AND WAS GIVEN PAIN MEDICATION NOW VIA IV PUSH, WILL RE-ASSESS PAIN AND MONITOR PT.
--- NOTE | 2019-09-03 19:15 | NUR ---
REPORT RECEIVED FROM AM NURSE AT BEDSIDE. PT IN STABLE CONDITION. AAOX4. INTRODUCED SELF TO PT. BOARD UPDATED. NO COMPLAINTS OF PAIN. NO SOB. LOW GRADE FEVER@99.9. PT IS AMBULATORY. IV SITE L HAND 20G SL PATENT AND INTACT. R HAND 20G RUNNING NS@120ML/HR PATENT AND INTACT. SKIN WARM, DRY, AND INTACT WITH NO OPEN WOUNDS. BED LOCKED IN LOW POSITION. CALL KAPOOR WITHIN REACH. SAFETY PRECAUTION IN PLACE. ALL NEEDS MET AT THIS TIME.
[2019-09-03] MEDS: ATORVASTATIN 20 MG TAB PO SCH (20:50)
--- NOTE | 2019-09-03 20:50 | NUR ---
METAMUCIL, NEUTRAPHOS, LIPITOR, GLUCOPHAGE, AND GLIPIZIDE GIVEN PO. HEPARIN GIVEN SUBQ. MERREM HUNG AND RUNNING. BS 253. 6 UNITS OF HUMALOG GIVEN. PT TOLERATED WELL.
--- NOTE | 2019-09-03 21:07 | NUR ---
NORCO GIVEN FOR 6/10 ABDOMINAL PAIN. ZOFRAN GIVEN FOR NAUSEA. PT TOLERATED WELL.
--- NOTE | 2019-09-03 22:40 | NUR ---
PT SLEEPING COMFORTABLY BUT AROUSABLE. NO S/S OF DISTRESS NOTED. WILL CONTINUE TO MONITOR.
[2019-09-04] VITALS: BP 165/77
[2019-09-04] MEDS: NACL 0.9% 1,000 ML IV SCH ×4 (00:27→22:52)
--- NOTE | 2019-09-04 00:40 | NUR ---
PT SLEEPING COMFORTABLY BUT AROUSABLE. NO S/S OF DISTRESS NOTED. NO COMPLAINTS OF PAIN. NO SOB. AFEBRILE. WILL CONTINUE TO MONITOR.
--- NOTE | 2019-09-04 02:00 | NUR ---
PT SLEEPING COMFORTABLY BUT AROUSABLE. NO S/S OF DISTRESS NOTED. RESPIRATIONS EVEN, UNLABORED, AND WNL. WILL CONTINUE TO MONITOR.
[2019-09-04] MEDS: MEROPENEM 1,000 MG in NACL 0.9% 100 ML IV SCH ×3 (04:04→21:06)
[2019-09-04] MEDS: HYDROcodone/APAP 5/325 MG 1 TAB TAB PO PRN (04:11)
--- NOTE | 2019-09-04 04:11 | NUR ---
ZOFRAN GIVEN FOR NAUSEA/VOMITING. NORCO GIVEN PO. MERREM HUNG AND RUNNING. PT TOLERATING WELL.
[2019-09-04] MEDS: ONDANSETRON 4 MG/2 ML VIAL IM/IVP PRN ×2 (04:12→13:24)
[2019-09-04] MEDS: BLOOD GLUCOSE MONITORING 1 DEV DEV FS SCH ×4 (05:49→21:20)
--- NOTE | 2019-09-04 05:49 | NUR ---
BS 131. NO INSULIN COVERAGE NEEDED.
[2019-09-04 06:56] LABS: BASOPHILS # (AUTO) 0.1 K/uL (0.00-0.22); BASOPHILS % (AUTO) 0.5 % (0.0-2.0); CARBON DIOXIDE 28.3 mmol/L (21-32); CREATININE 0.9 mg/dL (0.6-1.3); EOSINOPHILS # (AUTO) 0.1 K/uL (0-0.4); EOSINOPHILS % (AUTO) 0.4 % (0.0-4.0); HEMOGLOBIN 11.8 g/dL (12.0-18.0); LYMPHOCYTES % (AUTO) 5.7 % (20.5-51.1); MEAN CORPUSCULAR HEMOGLOBIN 29 pg (27-31); MEAN CORPUSCULAR HGB CONC 34 g/dL (33-37); MEAN CORPUSCULAR VOLUME 85.3 fL (80-94); MONOCYTES # (AUTO) 1.3 K/uL (0.8-1.0); MONOCYTES % (AUTO) 7.5 % (1.7-9.3); NEUTROPHILS # (AUTO) 14.6 K/uL (1.8-7.7); NEUTROPHILS % (AUTO) 85.9 % (42.2-75.2); PLATELET COUNT (AUTO) 285 K/uL (140-450); POTASSIUM 3.3 mmol/L (3.5-5.1); RED BLOOD CELL COUNT(AUTO) 4.11 MIL/uL (4.20-6.10); RED CELL DISTRIBUTION WIDTH 12.9 % (11.6-13.7); WHITE BLOOD COUNT (AUTO) 16.9 K/uL (4.8-10.8)
[2019-09-04 06:57] LABS: MAGNESIUM 1.7 mg/dL (1.8-2.4)
--- NOTE | 2019-09-04 06:57 | NUR ---
PT SLEEPING COMFORTABLY BUT AROUSABLE. PT IN STABLE CONDITION.
--- NOTE | 2019-09-04 07:00 | NUR ---
RECEIVED BEDSIDE REPORT FROM NIGHT NURSE, PT IS STABLE ASLEEP IN BED, FAMILY MEMBER AT BEDSIDE, NO SIGNS OF DISTRESS NOTED, LH 20G SALINE LOCK, RIGHT HAND 20G RUNNING NORMAL SALINE AT 120ML/H. SAFETY MEASURES IN PLACE, CALL LIGHT WITHIN REACH.
[2019-09-04 08:00] VITALS: BP 150/79
[2019-09-04] MEDS: glipiZIDE 10 MG TAB PO SCH ×2 (09:18→21:08)
[2019-09-04] MEDS: LACTOBACILLUS RHAMNOSUS GG 1 EACH CAP PO SCH (09:18)
[2019-09-04] MEDS: metFORMIN 500 MG TAB PO SCH ×2 (09:18→21:07)
[2019-09-04] MEDS: SODIUM PHOS / POTASSIUM PHOS 1 PKT PDR PO SCH ×2 (09:19→21:07)
[2019-09-04] MEDS: PSYLLIUM 12.2 GM/PKT PO SCH ×2 (09:19→21:08)
--- NOTE | 2019-09-04 09:20 | NUR ---
GAVE PT ORDERED MEDICATION, SIDE EFFECT TEACHING GIVEN, PT VERBALIZE UNDERSTANDING, PT TOLERATED MEDICATION, PT IS STABLE, FAMILY AT BEDSIDE, CALL LIGHT WITHIN REACH.
[2019-09-04] MEDS: INSULIN LANTUS 100 UNITS/ML 10 ML VIAL SUBQ SCH (09:22)
[2019-09-04] MEDS: INSULIN LISPRO SLIDING SCALE 100 UNITS/ML VIAL SUBQ PRN ×2 (12:14→21:16)
--- NOTE | 2019-09-04 13:28 | NUR ---
ADMINISTER ZOPHRAN FOR NAUSEA, PT EDUCATION GIVEN, PT IS STABLE, GAVE ORDERED MEDICATION, FAMILY AT BEDSIDE, CALL LIGHT WITHIN REACH.
--- NOTE | 2019-09-04 15:00 | NUR ---
PT RESTING IN BED, NO SIGNS OF DISTRESS NOTED, PT IS STABLE, FAMILY MEMBERS AT BEDSIDE, CALL LIGHT WITHIN REACH.
[2019-09-04 16:00] VITALS: BP 156/82
[2019-09-04] MEDS: ACETAMINOPHEN 650 MG/20.3 ML UDC PO PRN (18:04)
--- NOTE | 2019-09-04 18:06 | NUR ---
GAVE PT TYLENOL FOR FEVER OF 100.1, PT EDUCATION GIVEN, PT IS OTHERWISE STABLE, FAMILY AT BEDSIDE, CALL LIGHT WITHIN REACH
--- NOTE | 2019-09-04 19:16 | NUR ---
GAVE BEDSIDE REPORT TO NIGHT NURSE FOR CONTINUITY OF CARE, PT IS STABLE.
--- NOTE | 2019-09-04 19:17 | NUR ---
RECEIVED BEDSIDE REPORT FROM DAY SHIFT NURSE. PATIENT IS AWAKE, ALERT, AND COOPERATIVE. RESPIRATION EVEN UNLABORED ON ROOM AIR. NO DISTRESS NOTED. SKIN IS WARM AND DRY. IV PATENT AND INTACT. FAMILY AT BEDSIDE. PLAN OF CARE WAS DISCUSSED. ALL SAFETY MEASURES IN PLACE. BED IS AT LOW POSITION. CALL LIGHT WITHIN REACH AND VERBALIZES ITS USE. WILL CONTINUE TO MONITOR.
--- NOTE | 2019-09-04 20:00 | NUR ---
INITIAL ASSESSMENT DONE. VITALS WERE TAKEN. PATIENT IN STABLE CONDITION. NO DISTRESS NOTED. WILL CONTINUE TO MONITOR.
--- NOTE | 2019-09-04 21:06 | NUR ---
ALL SCHEDULED MEDS WERE GIVEN PER ORDER. NO ASE NOTED. WILL CONTINUE TO MONITOR.
[2019-09-04] MEDS: ATORVASTATIN 20 MG TAB PO SCH (21:07)
--- NOTE | 2019-09-04 23:25 | NUR ---
ADMINISTERED CALCIUM CARB/VIT-D 500MG/200 IU 1 TAB PER ORDER. WILL CONTINUE TO MONITOR.
--- NOTE | 2019-09-04 23:56 | NUR ---
VITALS WERE TAKEN. PATIENT IN STABLE CONDITION. NO DISTRESS NOTED. WILL CONTINUE TO MONITOR.
[2019-09-05] VITALS: BP 150/70
[2019-09-05] MEDS ORDERED: POTASSIUM PHOSPHATE 15 MM in NACL 0.9% 250 ML IV ONE ×2
[2019-09-05] MEDS ORDERED: CALCIUM CARB/VIT-D 500 MG/200 IU 1 TAB PO SCH
--- NOTE | 2019-09-05 02:00 | NUR ---
CHECKED PATIENT. PATIENT SLEEPING RESPIRATION EVEN UNLABORED ON ROOM AIR. NO DISTRESS NOTED. WILL CONTINUE TO MONITOR.
--- NOTE | 2019-09-05 03:55 | NUR ---
CHECKED PATIENT. PATIENT IS SLEEPING RESPIRATION EVEN UNLABORED ON ROOM AIR. NO DISTRESS NOTED. WILL CONTINUE TO MONITOR.
[2019-09-05] MEDS: MEROPENEM 1,000 MG in NACL 0.9% 100 ML IV SCH ×3 (04:45→20:28)
[2019-09-05] MEDS: BLOOD GLUCOSE MONITORING 1 DEV DEV FS SCH ×4 (06:14→20:40)
[2019-09-05] MEDS: NACL 0.9% 1,000 ML IV SCH ×3 (06:32→23:12)
[2019-09-05 06:49] LABS: BASOPHILS # (AUTO) 0.1 K/uL (0.00-0.22); BASOPHILS % (AUTO) 0.5 % (0.0-2.0); EOSINOPHILS # (AUTO) 0.1 K/uL (0-0.4); EOSINOPHILS % (AUTO) 0.3 % (0.0-4.0); HEMATOCRIT 33.9 % (36-52); HEMOGLOBIN 11.6 g/dL (12.0-18.0); LYMPHOCYTES # (AUTO) 1.5 K/uL (2.0-11.5); LYMPHOCYTES % (AUTO) 7.8 % (20.5-51.1); MEAN CORPUSCULAR HEMOGLOBIN 29 pg (27-31); MEAN CORPUSCULAR HGB CONC 34 g/dL (33-37); MEAN CORPUSCULAR VOLUME 85.1 fL (80-94); MONOCYTES # (AUTO) 1.4 K/uL (0.8-1.0); MONOCYTES % (AUTO) 7.3 % (1.7-9.3); NEUTROPHILS # (AUTO) 16.1 K/uL (1.8-7.7); NEUTROPHILS % (AUTO) 84.1 % (42.2-75.2); PLATELET COUNT (AUTO) 375 K/uL (140-450); RED BLOOD CELL COUNT(AUTO) 3.98 MIL/uL (4.20-6.10); RED CELL DISTRIBUTION WIDTH 12.8 % (11.6-13.7); WHITE BLOOD COUNT (AUTO) 19.1 K/uL (4.8-10.8)
[2019-09-05 06:53] LABS: ANION GAP 10.8 (8-16); CARBON DIOXIDE 29.4 mmol/L (21-32); POTASSIUM 3.2 mmol/L (3.5-5.1)
[2019-09-05 07:01] LABS: MAGNESIUM 1.7 mg/dL (1.8-2.4); PHOSPHORUS 2.6 mg/dL (2.5-4.9)
--- NOTE | 2019-09-05 07:14 | NUR ---
ENDORSED PATIENT TO DAY SHIFT NURSE. PATIENT IN STABLE CONDITION.
--- NOTE | 2019-09-05 07:27 | NUR ---
RECEIVED BEDSIDE REPORT FROM PM RN PT AWAKE IN BED PT FAMILY AT BEDSIDE. ALL SAFETY MEASURES ARE IN PLACE INTRODUCED MYSELF TO PATIENT AND INFORMED PT TO CALL IF THEY NEED ANYTHING. WILL CONTINUE TO MONITOR.
[2019-09-05] MEDS ORDERED: KCL 20 MEQ/WATER INJ PREMIX 200 ML IV PRN (08:30)
[2019-09-05] MEDS ORDERED: METOPROLOL SUCCINATE 50 MG TABER PO SCH (09:00)
[2019-09-05] MEDS: SODIUM PHOS / POTASSIUM PHOS 1 PKT PDR PO SCH ×2 (09:00→20:29)
[2019-09-05] MEDS: PSYLLIUM 12.2 GM/PKT PO SCH ×2 (09:00→20:31)
[2019-09-05] MEDS: CALCIUM CARB/VIT-D 500 MG/200 IU 1 TAB PO SCH (09:13)
[2019-09-05] MEDS: LACTOBACILLUS RHAMNOSUS GG 1 EACH CAP PO SCH (09:13)
[2019-09-05] MEDS: LISINOPRIL 10 MG TAB PO SCH (09:14)
[2019-09-05] MEDS: MAGNESIUM OXIDE 400 MG TAB PO SCH (09:14)
[2019-09-05] MEDS: glipiZIDE 10 MG TAB PO SCH ×2 (09:14→20:29)
[2019-09-05] MEDS: MAGNESIUM CHLORIDE 64 MG TABEC PO SCH (09:15)
[2019-09-05] MEDS: metFORMIN 500 MG TAB PO SCH ×2 (09:15→20:29)
--- NOTE | 2019-09-05 09:15 | NUR ---
FREQUENT ROUNDING ON PT PT APPEARS STABLE AND IN NO APPARENT DISTRESS. ALL SAFETY MEASURES ARE IN PLACE WILL CONTINUE TO MONITOR
[2019-09-05] MEDS: INSULIN LANTUS 100 UNITS/ML 10 ML VIAL SUBQ SCH (09:37)
--- NOTE | 2019-09-05 11:34 | NUR ---
FREQUENT ROUNDING ON PT PT APPEARS STABLE AND IN NO APPARENT DISTRESS. ALL SAFETY MEASURES ARE IN PLACE WILL CONTINUE TO MONITOR.
--- NOTE | 2019-09-05 13:46 | NUR ---
FREQUENT ROUNDING ON PT PT APPEARS STABLE AND IN NO APPARENT DISTRESS. ALL SAFETY MEASURES ARE IN PLACE WILL CONTINUE TO MONITOR.
--- NOTE | 2019-09-05 15:43 | NUR ---
FREQUENT ROUNDING ON PT PT APPEARS STABLE AND IN NO APPARENT DISTRESS. ALL SAFETY MEASURES ARE IN PLACE WILL CONTINUE TO MONITOR.
[2019-09-05 16:00] VITALS: BP 146/64
--- NOTE | 2019-09-05 16:14 | NUR ---
09/05/19 RD FOLLOW UP COMPLETED PLEASE REFER TO NUTRITION ASSESSMENT UNDER CARE ACTIVITY FOR ESTIMATED NUTRITIONAL NEEDS. 1. [facility] DI[facility] TOL[facility] 2. CONTINUE DIET HEALTH SHAKE WITH MEALS 3. DIETARY TO VISIT PT DAILY TO ASSIST W/ MENU SELECTION 4. RD TO FOLLOW-UP 3-5 DAYS, MODERATE RISK REVIEWED BY JOVANI FOOTE RD
--- NOTE | 2019-09-05 20:00 | NUR ---
INITIAL ASSESSMENT DONE. VITALS WERE TAKEN. PATIENT IN STABLE CONDITION. FAMILY AT BEDSIDE. WILL CONTINUE TO MONITOR.
[2019-09-05] MEDS: ATORVASTATIN 20 MG TAB PO SCH (20:30)
--- NOTE | 2019-09-05 20:30 | NUR ---
ALL SCHEDULED MEDS WERE GIVEN PER ORDER. NO ASE NOTED. WILL CONTINUE TO MONITOR.
--- NOTE | 2019-09-05 22:16 | NUR ---
CHECKED PATIENT. PATIENT SLEEPING RESPIRATION EVEN UNLABORED ON ROOM AIR. NO DISTRESS NOTED. WILL CONTINUE TO MONITOR.
--- NOTE | 2019-09-05 23:55 | NUR ---
VITALS WERE TAKEN. PATIENT IN STABLE CONDITION. NO DISTRESS NOTED. WILL CONTINUE TO MONITOR.
[2019-09-06] VITALS: BP 149/78
--- NOTE | 2019-09-06 02:30 | NUR ---
CHECKED PATIENT. PATIENT SLEEPING RESPIRATION EVEN UNLABORED ON ROOM AIR. NO DISTRESS NOTED. WILL CONTINUE TO MONITOR.
[2019-09-06] MEDS: NACL 0.9% 1,000 ML IV SCH ×3 (03:42→23:45)
[2019-09-06] MEDS: MEROPENEM 1,000 MG in NACL 0.9% 100 ML IV SCH ×3 (04:25→20:18)
--- NOTE | 2019-09-06 04:30 | NUR ---
GAVE PATIENT PRUNE JUICE TO HELP HIM HAVE A BOWEL MOVEMENT. WILL CONTINUE TO MONITOR.
[2019-09-06] MEDS: BLOOD GLUCOSE MONITORING 1 DEV DEV FS SCH ×4 (06:10→20:12)
[2019-09-06 07:00] LABS: ANION GAP 9.1 (8-16); CARBON DIOXIDE 29.3 mmol/L (21-32); CREATININE 0.8 mg/dL (0.6-1.3); POTASSIUM 3.4 mmol/L (3.5-5.1)
[2019-09-06 07:02] LABS: BASOPHILS # (AUTO) 0.2 K/uL (0.00-0.22); BASOPHILS % (AUTO) 1.1 % (0.0-2.0); EOSINOPHILS # (AUTO) 0.1 K/uL (0-0.4); EOSINOPHILS % (AUTO) 0.3 % (0.0-4.0); HEMATOCRIT 33.4 % (36-52); HEMOGLOBIN 11.3 g/dL (12.0-18.0); LYMPHOCYTES # (AUTO) 1.2 K/uL (2.0-11.5); LYMPHOCYTES % (AUTO) 6.3 % (20.5-51.1); MEAN CORPUSCULAR HEMOGLOBIN 29 pg (27-31); MEAN CORPUSCULAR HGB CONC 34 g/dL (33-37); MEAN CORPUSCULAR VOLUME 85.8 fL (80-94); MONOCYTES % (AUTO) 5.2 % (1.7-9.3); NEUTROPHILS # (AUTO) 17.2 K/uL (1.8-7.7); NEUTROPHILS % (AUTO) 87.1 % (42.2-75.2); PLATELET COUNT (AUTO) 408 K/uL (140-450); RED CELL DISTRIBUTION WIDTH 12.8 % (11.6-13.7); WHITE BLOOD COUNT (AUTO) 19.7 K/uL (4.8-10.8)
--- NOTE | 2019-09-06 07:11 | NUR ---
ENDORSED PATIENT TO DAY SHIFT NURSE. PATIENT IN STABLE CONDITION.
--- NOTE | 2019-09-06 07:36 | NUR ---
RECEIVED BEDSIDE REPORT FROM PM RN PT AWAKE IN BED ALL SAFETY MEASURES ARE IN PLACE. WILL CONTINUE TO MONITOR.
[2019-09-06 08:00] VITALS: BP 140/73
[2019-09-06] MEDS ORDERED: BISACODYL 10 MG SUPP RC PRN (08:30)
[2019-09-06] MEDS: MAGNESIUM OXIDE 400 MG TAB PO SCH (09:02)
[2019-09-06] MEDS: POLYETHYLENE GLYCOL 17 GM/PKT PO SCH ×2 (09:02→20:19)
[2019-09-06] MEDS: SODIUM PHOS / POTASSIUM PHOS 1 PKT PDR PO SCH ×2 (09:02→20:19)
[2019-09-06] MEDS: CALCIUM CARB/VIT-D 500 MG/200 IU 1 TAB PO SCH (09:03)
[2019-09-06] MEDS: glipiZIDE 10 MG TAB PO SCH ×2 (09:03→20:18)
[2019-09-06] MEDS: LISINOPRIL 10 MG TAB PO SCH (09:03)
[2019-09-06] MEDS: MAGNESIUM CHLORIDE 64 MG TABEC PO SCH (09:03)
[2019-09-06] MEDS: LACTOBACILLUS RHAMNOSUS GG 1 EACH CAP PO SCH (09:04)
[2019-09-06] MEDS: metFORMIN 500 MG TAB PO SCH ×2 (09:04→20:18)
[2019-09-06] MEDS: PSYLLIUM 12.2 GM/PKT PO SCH ×2 (09:04→20:19)
[2019-09-06] MEDS: METOPROLOL 25 MG TAB PO SCH ×2 (09:04→20:18)
[2019-09-06] MEDS: INSULIN LANTUS 100 UNITS/ML 10 ML VIAL SUBQ SCH (09:13)
--- NOTE | 2019-09-06 09:15 | NUR ---
ADMINISTERED MORNING MEDICATIONS PT AWAKE IN BED PT TOLERATED ALL MEDICATIONS ANSWERED ANY QUESTIONS OF PT INFORMED PATIENT OF ALL MEDICATIONS AND SIDE EFFECTS. PT FAMILY AT BEDSIDE ADMINISTERED LANTUS 10 UNITS SUBQ PER ORDER. WILL CONTINUE TO MONITOR PT.
--- NOTE | 2019-09-06 11:35 | NUR ---
FINGERSTICK GLUCOSE 95 NO COVERAGE NEEDED WILL CONTINUE TO MONITOR
--- NOTE | 2019-09-06 13:46 | NUR ---
FREQUENT ROUNDING ON PT PT APPEARS STABLE AND IN NO APPARENT DISTRESS. ALL SAFETY MEASURES ARE IN PLACE WILL CONTINUE TO MONITOR
--- NOTE | 2019-09-06 15:34 | NUR ---
FREQUENT ROUNDING ON PT PT APPEARS STABLE AND IN NO APPARENT DISTRESS. ALL SAFETY MEASURES ARE IN PLACE WILL CONTINUE TO MONITOR
[2019-09-06 16:00] VITALS: BP 153/86
--- NOTE | 2019-09-06 17:34 | NUR ---
FREQUENT ROUNDING ON PT PT APPEARS STABLE AND IN NO APPARENT DISTRESS. ALL SAFETY MEASURES ARE IN PLACE
--- NOTE | 2019-09-06 19:01 | NUR ---
ENDORSED PT TO PM RN PT AWAKE IN BED PT APPEARS STABLE AND IN NO APPARENT DISTRESS. ALL SAFETY MEASURES ARE IN PLACE CALL LIGHT WITHIN REACH IVF INFUSING IV SITE PATENT AND SHOWS NO SIGNS OF INFILTRATION OR INFLAMMATION. FAMILY AT BED SIDE.
--- NOTE | 2019-09-06 19:07 | NUR ---
REPORT RECEIVED FROM AM NURSE AT BEDSIDE. PT IN STABLE CONDITION. AAOX4. INTRODUCED SELF TO PT. BOARD UPDATED. NO COMPLAINTS OF PAIN. NO SOB. AFEBRILE. PT IS AMBULATORY. PT IS ANGOLAN SPEAKING. IV SITE L HAND 20G SL PATENT AND INTACT. R HAND 20G RUNNING NS@120ML/HR PATENT AND INTACT. SKIN WARM, DRY, AND INTACT WITH NO OPEN WOUNDS. BED LOCKED IN LOW POSITION. CALL [place] WITHIN REACH. SAFETY PRECAUTION IN PLACE. ALL NEEDS MET AT THIS TIME.
[2019-09-06] MEDS: ATORVASTATIN 20 MG TAB PO SCH (20:18)
--- NOTE | 2019-09-06 20:18 | NUR ---
JORGE HUNG AND RUNNING. GLUCOPHAGE, GLUCOTROL, LIPITOR, LOPRESSOR, METAMUCIL, MIRALAX, PHOSNAK, AND KDUR GIVEN PO. HEPARIN GIVEN SUBQ. BS 108. NO INSULIN COVERAGE NEEDED.
[2019-09-06] MEDS ORDERED: POTASSIUM CHLORIDE 10 MEQ TABER PO SCH (21:00)
--- NOTE | 2019-09-06 21:20 | NUR ---
PT AWAKE AND ALERT WATCHING TV WITH FAMILY AT BEDSIDE. NO S/S OF DISTRESS NOTED. WILL CONTINUE TO MONITOR.
--- NOTE | 2019-09-06 23:15 | NUR ---
PT SLEEPING COMFORTABLY BUT AROUSABLE. NO S/S OF DISTRESS NOTED. WILL CONTINUE TO MONITOR.
[2019-09-07] VITALS: BP 136/69
--- NOTE | 2019-09-07 01:05 | NUR ---
PT SLEEPING COMFORTABLY BUT AROUSABLE. NO S/S OF DISTRESS NOTED. NO COMPLAINTS OF PAIN. NO SOB. AFEBRILE. WILL CONTINUE TO MONITOR.
--- NOTE | 2019-09-07 03:30 | NUR ---
PT COMPLAINTS OF SHAKINESS AND SOB. VITAL SIGNS TAKEN AND WERE STABLE. BS OF 83. PT IN STABLE CONDITION. 2L O2 VIA NC PLACED. WILL CONTINUE TO MONITOR.
[2019-09-07] MEDS: MEROPENEM 1,000 MG in NACL 0.9% 100 ML IV SCH ×3 (04:00→20:23)
--- NOTE | 2019-09-07 04:00 | NUR ---
JORGE HUNG AND RUNNING. PT TOLERATING WELL.
[2019-09-07] MEDS: BLOOD GLUCOSE MONITORING 1 DEV DEV FS SCH ×4 (05:50→20:50)
--- NOTE | 2019-09-07 05:50 | NUR ---
BS 83. NO INSULIN COVERAGE NEEDED.
--- NOTE | 2019-09-07 06:49 | NUR ---
PT SLEEPING COMFORTABLY BUT AROUSABLE. PT IN STABLE CONDITION.
--- NOTE | 2019-09-07 07:05 | NUR ---
RECEIVED REPORT FROM NIGHT NURSE. PATIENT IN STABLE CONDITION. AAOX4. SKIN WARM AND DRY TO TOUCH. RESPIRATORY EVEN AND UNLABORED. DENIES ANY PAIN OR DISCOMFORT. IV INTACT AND PATENT TO LEFT HAND AND RIGHT HAND. RIGHT HAND IV WITH IVF NS @ 120ML/HR. BED IN LOW POSITION. SAFETY MEASURES IN PLACE. CALL LIGHT WITHIN REACH.
[2019-09-07 07:11] LABS: BASOPHILS # (AUTO) 0.2 K/uL (0.00-0.22); BASOPHILS % (AUTO) 1.1 % (0.0-2.0); EOSINOPHILS # (AUTO) 0.1 K/uL (0-0.4); EOSINOPHILS % (AUTO) 0.6 % (0.0-4.0); HEMATOCRIT 35.5 % (36-52); HEMOGLOBIN 11.9 g/dL (12.0-18.0); LYMPHOCYTES # (AUTO) 1.9 K/uL (2.0-11.5); LYMPHOCYTES % (AUTO) 11.3 % (20.5-51.1); MEAN CORPUSCULAR HEMOGLOBIN 29 pg (27-31); MEAN CORPUSCULAR HGB CONC 34 g/dL (33-37); MEAN CORPUSCULAR VOLUME 86.4 fL (80-94); MONOCYTES # (AUTO) 0.9 K/uL (0.8-1.0); MONOCYTES % (AUTO) 5.2 % (1.7-9.3); NEUTROPHILS # (AUTO) 14.1 K/uL (1.8-7.7); NEUTROPHILS % (AUTO) 81.8 % (42.2-75.2); PLATELET COUNT (AUTO) 469 K/uL (140-450); RED BLOOD CELL COUNT(AUTO) 4.11 MIL/uL (4.20-6.10); WHITE BLOOD COUNT (AUTO) 17.2 K/uL (4.8-10.8)
[2019-09-07 07:20] LABS: ANION GAP 9.8 (8-16); CARBON DIOXIDE 30.5 mmol/L (21-32); CREATININE 0.9 mg/dL (0.6-1.3); POTASSIUM 4.3 mmol/L (3.5-5.1)
[2019-09-07 08:00] VITALS: BP 142/73
[2019-09-07] MEDS: INSULIN LANTUS 100 UNITS/ML 10 ML VIAL SUBQ SCH (09:00)
[2019-09-07] MEDS: NACL 0.9% 1,000 ML IV SCH ×2 (09:10→16:52)
[2019-09-07] MEDS: CALCIUM CARB/VIT-D 500 MG/200 IU 1 TAB PO SCH (09:11)
[2019-09-07] MEDS: MAGNESIUM CHLORIDE 64 MG TABEC PO SCH (09:11)
[2019-09-07] MEDS: glipiZIDE 10 MG TAB PO SCH ×2 (09:11→20:22)
[2019-09-07] MEDS: LISINOPRIL 10 MG TAB PO SCH (09:11)
[2019-09-07] MEDS: MAGNESIUM OXIDE 400 MG TAB PO SCH (09:12)
[2019-09-07] MEDS: METOPROLOL 25 MG TAB PO SCH ×3 (09:12→20:39)
[2019-09-07] MEDS: SODIUM PHOS / POTASSIUM PHOS 1 PKT PDR PO SCH ×2 (09:12→20:22)
[2019-09-07] MEDS: PSYLLIUM 12.2 GM/PKT PO SCH ×2 (09:13→20:23)
[2019-09-07] MEDS: POLYETHYLENE GLYCOL 17 GM/PKT PO SCH ×2 (09:13→20:22)
--- NOTE | 2019-09-07 09:15 | NUR ---
PATIENT AA0X4. AM MEDICATIONS GIVEN. FAMILY AT BEDSIDE. NO S/S OF DISTRESS NOTED.
[2019-09-07] MEDS: metFORMIN 500 MG TAB PO SCH ×2 (09:22→20:22)
[2019-09-07] MEDS: LACTOBACILLUS RHAMNOSUS GG 1 EACH CAP PO SCH (09:23)
--- NOTE | 2019-09-07 12:00 | NUR ---
PATIENT FAMILY AT BEDSIDE. PATIENT IN BED, AWAKE, ORIENTED X4. NO S/S OF DISTRESS NOTED. BG CHECKED NO COVERAGE.
--- NOTE | 2019-09-07 14:00 | NUR ---
PATIENT IN BED, AAOX4. ABLE TO MAKE NEEDS KNOWN. AT BEDSIDE. DENIES ANY PAIN OR DISCOMFORT. CALL LIGHT WITHIN REACH.
[2019-09-07 16:00] VITALS: BP_SYST 126; BP_SYST 130; BP_DIAS 64; BP_DIAS 92
--- NOTE | 2019-09-07 16:45 | NUR ---
PATIENT IN BED, AAOX4. DENIES ANY SOB. DENIES ANY PAIN OR DISCOMFORT. FAMILY AT BEDSIDE. CALL LIGHT WITHIN REACH.
--- NOTE | 2019-09-07 18:45 | NUR ---
PATIENT IS AWAKE, ALERT, ORIENTED X4. PATIENT WATCHING TV. NO S/S OF DISTRESS NOTED.
--- NOTE | 2019-09-07 19:00 | NUR ---
PATIENT IN STABLE CONDITION. REPORT GIVEN TO NIGHT NURSE FOR CONTINUITY OF CARE.
--- NOTE | 2019-09-07 19:01 | NUR ---
REPORT RECEIVED FROM AM NURSE AT BEDSIDE. PT IN STABLE CONDITION. AAOX4. INTRODUCED SELF TO PT AND FAMILY. BOARD UPDATED. NO COMPLAINTS OF PAIN. NO SOB. AFEBRILE. NO FEELINGS OF N/V. PT IS AMBULATORY AND HAS BRP. IV SITE L HAND 20G SL PATENT AND INTACT. R HAND 20G RUNNING NS@120ML/HR PATENT AND INTACT. SKIN WARM, DRY, AND INTACT WITH NO OPEN WOUNDS. BED LOCKED IN LOW POSITION. CALL [place] WITHIN REACH. SAFETY PRECAUTION IN PLACE. ALL NEEDS MET AT THIS TIME.
[2019-09-07] MEDS: ATORVASTATIN 20 MG TAB PO SCH (20:22)
--- NOTE | 2019-09-07 20:23 | NUR ---
JORGE HUNG AND RUNNING. GLUCOPHAGE, GLUCOTROL, LIPITOR, LOPRESSOR, METAMUCIL, MIRALAX, AND NEUTRAPHOS GIVEN PO. HEPARIN GIVEN SUBQ. BS 144. NO INSULIN COVERAGE NEEDED. PT TOLERATED WELL. Addendum: 09/07/19 at 2218 by Manny Pan RN LOPRESSOR NOT GIVEN. LOPRESSOR HELD DUE TO BP 105/63 AND HR 86.
--- NOTE | 2019-09-07 22:00 | NUR ---
PT IN BED WATCHING TV WITH SPOUSE AT BEDSIDE. NO S/S OF DISTRESS NOTED. WILL CONTINUE TO MONITOR.
[2019-09-08] VITALS: BP 115/57
[2019-09-08] MEDS: ACETAMINOPHEN 650 MG/20.3 ML UDC PO PRN (00:23)
--- NOTE | 2019-09-08 00:23 | NUR ---
TYL GIVEN FOR TEMP OF 100.0. PT TOLERATED WELL.
[2019-09-08] MEDS: NACL 0.9% 1,000 ML IV SCH ×4 (02:20→21:51)
--- NOTE | 2019-09-08 02:30 | NUR ---
PT SLEEPING COMFORTABLY BUT AROUSABLE. NO S/S OF DISTRESS NOTED. NO COMPLAINTS OF PAIN. NO SOB. AFEBRILE. WILL CONTINUE TO MONITOR.
[2019-09-08] MEDS: MEROPENEM 1,000 MG in NACL 0.9% 100 ML IV SCH ×3 (04:02→21:51)
--- NOTE | 2019-09-08 04:02 | NUR ---
JORGE HUNG AND RUNNING. PT TOLERATED WELL.
[2019-09-08] MEDS: BLOOD GLUCOSE MONITORING 1 DEV DEV FS SCH ×4 (05:29→20:54)
--- NOTE | 2019-09-08 05:29 | NUR ---
BS 72. NO INSULIN COVERAGE NEEDED. ORANGE JUICE GIVEN TO INCREASE BS.
[2019-09-08 06:37] LABS: BASOPHILS # (AUTO) 0.1 K/uL (0.00-0.22); EOSINOPHILS # (AUTO) 0.1 K/uL (0-0.4); EOSINOPHILS % (AUTO) 1.1 % (0.0-4.0); HEMATOCRIT 34.9 % (36-52); HEMOGLOBIN 11.6 g/dL (12.0-18.0); LYMPHOCYTES # (AUTO) 1.4 K/uL (2.0-11.5); LYMPHOCYTES % (AUTO) 11.6 % (20.5-51.1); MEAN CORPUSCULAR HEMOGLOBIN 29 pg (27-31); MEAN CORPUSCULAR HGB CONC 33 g/dL (33-37); MONOCYTES # (AUTO) 0.8 K/uL (0.8-1.0); MONOCYTES % (AUTO) 6.3 % (1.7-9.3); NEUTROPHILS # (AUTO) 9.7 K/uL (1.8-7.7); PLATELET COUNT (AUTO) 526 K/uL (140-450); RED BLOOD CELL COUNT(AUTO) 4.06 MIL/uL (4.20-6.10); RED CELL DISTRIBUTION WIDTH 13.2 % (11.6-13.7); WHITE BLOOD COUNT (AUTO) 12.1 K/uL (4.8-10.8)
--- NOTE | 2019-09-08 06:50 | NUR ---
PT SLEEPING COMFORTABLY BUT AROUSABLE. PT IN STABLE CONDITION.
--- NOTE | 2019-09-08 07:05 | NUR ---
RECEIVED BEDSIDE SHIFT REPORT FROM CORDWOOD CUTTER HELPER RN FOR CONTINUATION OF CARE. PATIENT IS AAOX4, YAKUT SPEAKING, DENIES PAIN/DISTRESS AT THIS TIME, IS AT BEDSIDE. CALL LIGHT ON AND WITHIN REACH. WILL CONTINUE TO MONITOR.
[2019-09-08 07:28] LABS: ANION GAP 10.5 (8-16); CARBON DIOXIDE 29.3 mmol/L (21-32); CREATININE 0.9 mg/dL (0.6-1.3); POTASSIUM 4.8 mmol/L (3.5-5.1)
[2019-09-08 08:00] VITALS: BP 112/63
[2019-09-08] MEDS: INSULIN LANTUS 100 UNITS/ML 10 ML VIAL SUBQ SCH (09:00)
--- NOTE | 2019-09-08 09:30 | NUR ---
MEDICATIONS ADMINISTERED AND TOLERATED WELL, HELD LANTUS INSULIN PER MD'S ORDERS. PATIENT IS RESTING IN BED, NS BAG REPLACED. NS RUNNING AT 120 ML/HR. PATIENT PRESENTS TIRED, FATIGUED. FAMILY IS AT BEDSIDE. BED IS IN LOW POSITION, CALL LIGHT ON AND WITHIN REACH. WILL CONTINUE TO MONITOR.
[2019-09-08] MEDS: SODIUM PHOS / POTASSIUM PHOS 1 PKT PDR PO SCH ×2 (09:42→21:06)
[2019-09-08] MEDS: PSYLLIUM 12.2 GM/PKT PO SCH ×2 (09:43→21:06)
[2019-09-08] MEDS: MAGNESIUM CHLORIDE 64 MG TABEC PO SCH (09:43)
[2019-09-08] MEDS: POLYETHYLENE GLYCOL 17 GM/PKT PO SCH ×2 (09:43→21:06)
[2019-09-08] MEDS: CALCIUM CARB/VIT-D 500 MG/200 IU 1 TAB PO SCH (09:44)
[2019-09-08] MEDS: METOPROLOL 25 MG TAB PO SCH ×2 (09:44→21:00)
[2019-09-08] MEDS: metFORMIN 500 MG TAB PO SCH ×2 (09:44→21:04)
[2019-09-08] MEDS: glipiZIDE 10 MG TAB PO SCH ×2 (09:44→21:04)
[2019-09-08] MEDS: LACTOBACILLUS RHAMNOSUS GG 1 EACH CAP PO SCH (09:50)
[2019-09-08] MEDS: LISINOPRIL 10 MG TAB PO SCH (09:56)
--- NOTE | 2019-09-08 11:47 | NUR ---
PATIENT IS RESTING IN BED, ROUNDS MADE FOR SAFETY, PATIENT IN MEDICALLY STABLE CONDITION, DENIES PAIN AT THIS TIME. EDUCATED ON THE IMPORTANCE OF REPORTING EARLY SIGNS OF INFECTION SUCH FEELING WARMER THAN USUAL, COUGH OR DIFFICULTY BREATHING, INCREASED HEART RATE, FEELING FATIGUE, PATIENT VERBALIZED UNDERSTANDING. WILL CONTINUE TO MONITOR.
--- NOTE | 2019-09-08 13:50 | NUR ---
IV ANTIBIOTICS RUNNING, TOLERATING WELL. PATIENT IS RESTING IN BED, CONTINUES TO PRESENT FATIGUED, FAMILY AT BEDSIDE. DENIES PAIN AT THIS TIME. HYGIENE IS INTACT AND IS ABLE TO BE CARRIED OUT INDEPENDENTLY. WILL CONTINUE TO MONITOR.
--- NOTE | 2019-09-08 15:27 | NUR ---
ROUNDS MADE, CALL LIGHT ON AND WITHIN REACH, SAFETY IS INTACT, BED IS IN LOW POSITION, FAMILY AT BEDSIDE. WILL CONTINUE TO MONITOR.
[2019-09-08 16:00] VITALS: BP 120/76
--- NOTE | 2019-09-08 17:39 | NUR ---
PATIENT IS RESTING IN BED, CALL LIGHT ON AND WITHIN REACH, FAMILY AT BEDSIDE, PATIENT ENDORSES FEELING BETTER. WBC TRENDING DOWN. DENIES PAIN AT THIS TIME. WILL CONTINUE TO MONITOR.
--- NOTE | 2019-09-08 19:25 | NUR ---
RECEIVED REPORT FROM DERICK NAGY DAYSHIFT NURSE AT BEDSIDE FOR CONTINUITY OF CARE, PT IN STABLE CONDITION.
--- NOTE | 2019-09-08 19:25 | NUR ---
REPORT GIVEN TO ONCOMING PHOTOGRAPHIC REPRODUCTION TECHNICIAN NURSE FOR CONTINUATION OF CARE.
--- NOTE | 2019-09-08 20:00 | NUR ---
PT IN BED AOX4 WITH IV SITE 20G ON RIGHT HAND. PT RUNNING N/S AT 120MLS/HR. PT DENIES ANY PAIN AT THIS TIME. V/S FOLLOWS; T 98.2 P 70 R 18 B/P 125/88 02 97% ON ROOM AIR. ALL UNIVERSAL FALLS PRECAUTIONS IN PLACE. Addendum: 09/08/19 at 2345 by Alyssa Vega RN V/S ARE NOT THE CORRECT ONES FOR THIS PT. CORRECT V/S FOLLOWS T 98.6 P P 83 R 18 B/P 105/55 02 97% ON ROOM AIR.
--- NOTE | 2019-09-08 21:00 | NUR ---
PT IN BED FINGERSTICK IS 104, NO HUMALOG COVERAGE NEEDED. PT GIVEN DUE MEDS OF METFORMIN AND GLIPIZIDE. PT GIVEN A SNACK OF CRACKERS AND MILK WELL A HAM SANDWICH TO ASSURE THAT PT SUGAR DOESN'T DROP TOO LOW. PT ALSO GIVEN ORDERED LIPITOR WELL MIRALAX AND METAMUCIL FOR CONSTIPATION. PT GIVEN PO NUETRA PHOS TO ASSIST WITH APPETITE AND HELP PH BALANCE OF URINE, WELL ORDERED HEPARIN SQ FOR DVT PREVENTION. MEDICATION EDUCATION PROVIDED FOR ALL MEDICATIONS PT VERBALIZED UNDERSTANDING. LOPRESSOR WAS HELD DUE TO LOW B/P (105/55). NEW IV SITE PROVIDED UE TO PT C/O OF TENDERNESS ANDS DIFFICULTY FLUSHING IV ON RIGHT HAND. SITE D/CD. NEW SITE PROVIDED ON LEFT WRIST 22G. NEW BAG OF N/S PROVIDED AND MERREM HUNG AND RUNNING ORDERED. ALL UNIVERSAL PRECAUTIONS IN PLACE.
[2019-09-08] MEDS: ATORVASTATIN 20 MG TAB PO SCH (21:05)
[2019-09-09] VITALS: BP 100/56
--- NOTE | 2019-09-09 | NUR ---
PT FINGERSTICK IS 152 HE IS AOX4 , NO C/O VOICE AT THIS TIME, V/S FOLLOWS: T 97.4 P 98 02 R 18 97% B/P 100/56. PT DENIES PAIN AND IV FLUIDS CONTINUES ORDERED ALL REQUESTED NEEDS ATTENDED BY STAFF.
--- NOTE | 2019-09-09 01:30 | NUR ---
PT WOKE UP SWEATY FINGERSTICK TAKEN AND IT WAS 152.
--- NOTE | 2019-09-09 02:00 | NUR ---
PT UP TO BATHROOM, NEW LINENS AND GOWN PROVIDED. PT DENIES ANY PAIN OR DISCOMFORT IV SITE INTACT AND RUNNING FLUIDS ORDERED.
[2019-09-09] MEDS: BLOOD GLUCOSE MONITORING 1 DEV DEV FS SCH ×4 (05:30→20:22)
[2019-09-09] MEDS: MEROPENEM 1,000 MG in NACL 0.9% 100 ML IV SCH ×3 (05:30→20:13)
--- NOTE | 2019-09-09 06:02 | NUR ---
PT FINGERSTICK IS 85, NO HUMALOG COVERAGE NEEDED. PT GIVEN 2 BOXES OF JUICE TO RAISE BLOOD SUGAR. PT GIVEN ORDERED MERREM. ALL REQUESTED NEEDS ATTENDED.
--- NOTE | 2019-09-09 07:20 | NUR ---
RECEIVED BEDSIDE SHIFT REPORT FROM ENTERTAINMENT REPORTER NURSE FOR CONTINUATION OF CARE. PATIENT IS RESTING IN BED, WAITING FOR BREAKFAST, AAOX4. BED IS IN LOW POSITION, CALL LIGHT ON AND WITHIN REACH. WILL CONTINUE TO MONITOR.
[2019-09-09 08:00] VITALS: BP 115/69
[2019-09-09] MEDS: glipiZIDE 10 MG TAB PO SCH ×2 (08:44→20:14)
[2019-09-09] MEDS: metFORMIN 500 MG TAB PO SCH ×2 (08:44→20:13)
[2019-09-09] MEDS: CALCIUM CARB/VIT-D 500 MG/200 IU 1 TAB PO SCH (08:46)
[2019-09-09] MEDS: LACTOBACILLUS RHAMNOSUS GG 1 EACH CAP PO SCH (08:46)
[2019-09-09] MEDS: MAGNESIUM CHLORIDE 64 MG TABEC PO SCH (08:46)
[2019-09-09] MEDS: SODIUM PHOS / POTASSIUM PHOS 1 PKT PDR PO SCH ×2 (08:46→20:15)
[2019-09-09] MEDS: POLYETHYLENE GLYCOL 17 GM/PKT PO SCH ×2 (08:47→20:15)
[2019-09-09] MEDS: PSYLLIUM 12.2 GM/PKT PO SCH ×2 (08:48→20:16)
[2019-09-09] MEDS: LISINOPRIL 10 MG TAB PO SCH (09:00)
[2019-09-09] MEDS: METOPROLOL 25 MG TAB PO SCH ×2 (09:00→20:27)
[2019-09-09] MEDS: INSULIN LANTUS 100 UNITS/ML 10 ML VIAL SUBQ SCH (09:00)
--- NOTE | 2019-09-09 09:49 | NUR ---
EDUCATED ON THE IMPORTANCE OF MONITORING BLOOD SUGAR TO PREVENT COMPLICATIONS RELATED TO UNCONTROLLED DIABETES TYPE 2. VERBALIZED UNDERSTANDING. STAT CMP/BMP ORDERED PER MD. PATIENT RESTING IN BED. TOLERATED MEDICATION ADMINISTRATION WITH NO SIGNS OF DISTRESS. WILL CONTINUE TO MONITOR.
[2019-09-09] MEDS: NACL 0.9% 1,000 ML IV SCH ×2 (10:32→18:52)
[2019-09-09 11:37] LABS: BASOPHILS # (AUTO) 0.1 K/uL (0.00-0.22); BASOPHILS % (AUTO) 1.3 % (0.0-2.0); EOSINOPHILS # (AUTO) 0.1 K/uL (0-0.4); EOSINOPHILS % (AUTO) 0.9 % (0.0-4.0); HEMATOCRIT 35.8 % (36-52); HEMOGLOBIN 11.8 g/dL (12.0-18.0); LYMPHOCYTES # (AUTO) 1.7 K/uL (2.0-11.5); LYMPHOCYTES % (AUTO) 15.5 % (20.5-51.1); MEAN CORPUSCULAR HEMOGLOBIN 29 pg (27-31); MEAN CORPUSCULAR HGB CONC 33 g/dL (33-37); MEAN CORPUSCULAR VOLUME 86.2 fL (80-94); MONOCYTES # (AUTO) 0.6 K/uL (0.8-1.0); MONOCYTES % (AUTO) 5.2 % (1.7-9.3); NEUTROPHILS # (AUTO) 8.4 K/uL (1.8-7.7); NEUTROPHILS % (AUTO) 77.1 % (42.2-75.2); PLATELET COUNT (AUTO) 542 K/uL (140-450); RED BLOOD CELL COUNT(AUTO) 4.15 MIL/uL (4.20-6.10); RED CELL DISTRIBUTION WIDTH 13.1 % (11.6-13.7); WHITE BLOOD COUNT (AUTO) 10.9 K/uL (4.8-10.8)
[2019-09-09 11:51] LABS: ANION GAP 9.5 (8-16); CARBON DIOXIDE 29.8 mmol/L (21-32); CREATININE 0.8 mg/dL (0.6-1.3); POTASSIUM 4.3 mmol/L (3.5-5.1)
--- NOTE | 2019-09-09 13:00 | NUR ---
PATIENT IS RESTING IN BED, BLOOD SUGAR CHECK IS 79, NO COVERAGE NEEDED, PATIENT IS AAOX4. CALL LIGHT ON AND WITHIN REACH. WILL CONTINUE TO MONITOR.
[2019-09-09 16:00] VITALS: BP 123/65
--- NOTE | 2019-09-09 16:00 | NUR ---
MERREM ADMINISTERED, TOLERATED WELL., NO STATED CONCERNS AT THIS TIME. WILL CONTINUE TO MONITOR.
--- NOTE | 2019-09-09 19:00 | NUR ---
RECEIVED BEDSIDE REPORT FROM DAY SHIFT NURSE. PATIENT IS AWAKE, ALERT, AND COOPERATIVE. RESPIRATION EVEN UNLABORED ON ROOM AIR. NO DISTRESS NOTED. SKIN IS WARM AND DRY. IV PATENT AND INTACT. FAMILY MEMBER AT BEDSIDE. ALL SAFETY MEASURES IN PLACE. BED IS AT LOW POSITION. CALL LIGHT WITHIN REACH AND VERBALIZES ITS USE. WILL CONTINUE TO MONITOR.
--- NOTE | 2019-09-09 19:05 | NUR ---
BEDSIDE SHIFT REPORT GIVEN TO FIRE SPRINKLER SERVICE TECHNICIAN NURSE FOR CONTINUATION OF CARE.
--- NOTE | 2019-09-09 20:00 | NUR ---
INITIAL ASSESSMENT DONE. VITALS WERE TAKEN. PATIENT BP IS 90/85 HR 87. HOLD BP MEDS PER PARAMETER. WILL CONTINUE TO MONITOR.
[2019-09-09] MEDS: ATORVASTATIN 20 MG TAB PO SCH (20:14)
--- NOTE | 2019-09-09 20:15 | NUR ---
ALL SCHEDULED MEDS WERE GIVEN PER ORDER. NO ASE NOTED. WILL CONTINUE TO MONITOR.
[2019-09-09] MEDS: INSULIN LISPRO SLIDING SCALE 100 UNITS/ML VIAL SUBQ PRN (20:21)
--- NOTE | 2019-09-09 21:54 | NUR ---
CHECKED PATIENT. PATIENT SLEEPING RESPIRATION EVEN UNLABORED ON ROOM AIR. AT BEDSIDE. WILL CONTINUE TO MONITOR.
--- NOTE | 2019-09-09 23:50 | NUR ---
VITALS WERE TAKEN. PATIENT IN STABLE CONDITION. NO DISTRESS NOTED. WILL CONTINUE TO MONITOR.
[2019-09-10] VITALS: BP 112/68
[2019-09-10] MEDS: NACL 0.9% 1,000 ML IV SCH ×3 (01:43→19:31)
--- NOTE | 2019-09-10 01:51 | NUR ---
CHECKED PATIENT. PATIENT SLEEPING RESPIRATION EVEN UNLABORED ON ROOM AIR. NO DISTRESS NOTED. WILL CONTINUE TO MONITOR.
--- NOTE | 2019-09-10 03:52 | NUR ---
CHECKED PATIENT. PATIENT ASK FOR BLANKET. BLANKET PROVIDED. WILL CONTINUE TO MONITOR.
[2019-09-10] MEDS: MEROPENEM 1,000 MG in NACL 0.9% 100 ML IV SCH ×3 (04:32→20:33)
[2019-09-10] MEDS: BLOOD GLUCOSE MONITORING 1 DEV DEV FS SCH ×4 (06:20→20:42)
--- NOTE | 2019-09-10 07:18 | NUR ---
ENDORSED PATIENT TO DAY SHIFT NURSE. PATIENT IS IN STABLE CONDITION.
--- NOTE | 2019-09-10 07:19 | NUR ---
RECEIVED REPORT FROM POLITICAL SCIENCE CHAIR NURSE OMA FOR CONTINUITY OF CARE. PT IN STABLE CONDITION. RESPIRATIONS EVEN AND UNLABORED, ROOM AIR. IV INTACT AND PATENT. SAFETY MEASURES IN PLACE. BED IN LOW POSITION. CALL LIGHT AT BEDSIDE. WILL CONTINUE TO MONITOR.
[2019-09-10 08:00] VITALS: BP 96/54
[2019-09-10] MEDS: LISINOPRIL 10 MG TAB PO SCH (09:00)
[2019-09-10] MEDS: METOPROLOL 25 MG TAB PO SCH ×2 (09:00→20:35)
[2019-09-10] MEDS: LACTOBACILLUS RHAMNOSUS GG 1 EACH CAP PO SCH (09:24)
[2019-09-10] MEDS: POLYETHYLENE GLYCOL 17 GM/PKT PO SCH ×2 (09:24→20:34)
[2019-09-10] MEDS: SODIUM PHOS / POTASSIUM PHOS 1 PKT PDR PO SCH ×2 (09:24→20:36)
[2019-09-10] MEDS: MAGNESIUM CHLORIDE 64 MG TABEC PO SCH (09:25)
[2019-09-10] MEDS: CALCIUM CARB/VIT-D 500 MG/200 IU 1 TAB PO SCH (09:25)
[2019-09-10] MEDS: metFORMIN 500 MG TAB PO SCH ×2 (09:25→20:36)
[2019-09-10] MEDS: glipiZIDE 10 MG TAB PO SCH ×2 (09:25→20:36)
--- NOTE | 2019-09-10 09:25 | NUR ---
GAVE ORDERED DUE MEDICATIONS AT THIS TIME. PT TOLERATED WELL. PROGRAM DIRECTOR/AIR PERSONALITY KATHERIN [id number] ASSISTED. BED IN LOW POSITION. CALL LIGHT AT BEDSIDE. WILL CONTINUE TO MONITOR.
[2019-09-10] MEDS: PSYLLIUM 12.2 GM/PKT PO SCH ×2 (09:27→20:37)
[2019-09-10] MEDS: INSULIN LANTUS 100 UNITS/ML 10 ML VIAL SUBQ SCH (10:09)
[2019-09-10 10:56] LABS: BASOPHILS # (AUTO) 0.1 K/uL (0.00-0.22); EOSINOPHILS # (AUTO) 0.1 K/uL (0-0.4); EOSINOPHILS % (AUTO) 1.1 % (0.0-4.0); HEMATOCRIT 34.5 % (36-52); HEMOGLOBIN 11.6 g/dL (12.0-18.0); LYMPHOCYTES # (AUTO) 1.7 K/uL (2.0-11.5); LYMPHOCYTES % (AUTO) 15.6 % (20.5-51.1); MEAN CORPUSCULAR HEMOGLOBIN 29 pg (27-31); MEAN CORPUSCULAR HGB CONC 34 g/dL (33-37); MEAN CORPUSCULAR VOLUME 86.7 fL (80-94); MONOCYTES # (AUTO) 0.7 K/uL (0.8-1.0); MONOCYTES % (AUTO) 6.1 % (1.7-9.3); NEUTROPHILS # (AUTO) 8.3 K/uL (1.8-7.7); NEUTROPHILS % (AUTO) 76.2 % (42.2-75.2); PLATELET COUNT (AUTO) 565 K/uL (140-450); RED BLOOD CELL COUNT(AUTO) 3.98 MIL/uL (4.20-6.10); RED CELL DISTRIBUTION WIDTH 13.3 % (11.6-13.7); WHITE BLOOD COUNT (AUTO) 10.9 K/uL (4.8-10.8)
[2019-09-10 11:02] LABS: ANION GAP 11.2 (8-16); CARBON DIOXIDE 30.1 mmol/L (21-32); CREATININE 0.8 mg/dL (0.6-1.3); POTASSIUM 4.3 mmol/L (3.5-5.1)
[2019-09-10 11:06] LABS: PHOSPHORUS 3.1 mg/dL (2.5-4.9)
--- NOTE | 2019-09-10 11:36 | NUR ---
PT TALKING WITH FAMILY AT BEDSIDE. RESPIRATIONS EVEN AND UNLABORED. BED IN LOW POSITION. CALL LIGHT AT BEDSIDE. WILL CONTINUE TO MONITOR.
--- NOTE | 2019-09-10 11:47 | NUR ---
09/10/19 RD FOLLOW UP COMPLETED PLEASE REFER TO NUTRITION PROGRESS NOTE UNDER CARE ACTIVITY FOR ESTIMATED NUTRITION NEEDS. RD RECOMMENDATIONS: 1. CONTINUE 60GM CCHO DIET TOLERATED 2. CONTINUE DIET HEALTH SHAKE TID WITH MEALS 3. DIETARY TO CONTINUE VISIT PT DAILY TO ASSIST W/ MENU SELECTION 4. RD TO FOLLOW-UP 3-5 DAYS, MODERATE RISK SHANT HINOJOSA MBA, RD
--- NOTE | 2019-09-10 13:34 | NUR ---
GAVE ORDERED DUE MEDICATIONS AT THIS TIME. PT TOLERATED WELL. PT TALKING WITH FAMILY AT THIS TIME. RESPIRATIONS EVEN AND UNLABORED. BED IN LOW POSITION. CALL LIGHT AT BEDSIDE. WILL CONTINUE TO MONITOR.
--- NOTE | 2019-09-10 15:32 | NUR ---
PT LYING IN BED SLEEPING AT THIS TIME. RESPIRATIONS EVEN AND UNLABORED. BED IN LOW POSITION. CALL LIGHT AT BEDSIDE. WILL CONTINUE TO MONITOR.
[2019-09-10 16:00] VITALS: BP 125/70
--- NOTE | 2019-09-10 17:35 | NUR ---
PT EATING LUNCH AT THIS TIME. PT IN STABLE CONDITION. BED IN LOW POSITION. CALL LIGHT AT BEDSIDE. WILL CONTINUE TO MONITOR.
[2019-09-10] MEDS: INSULIN LISPRO SLIDING SCALE 100 UNITS/ML VIAL SUBQ PRN ×2 (17:36→20:46)
--- NOTE | 2019-09-10 19:11 | NUR ---
GAVE REPORT TO NETWORKER NURSE KISSPATRICK FOR CONTINUITY OF CARE. PT IN STABLE CONDITION.
--- NOTE | 2019-09-10 20:00 | NUR ---
INITIAL ASSESSMENT DONE. VITALS WERE TAKEN. PATIENT IN STABLE CONDITION. NO DISTRESS NOTED. WILL CONTINUE TO MONITOR.
--- NOTE | 2019-09-10 20:30 | NUR ---
ALL SCHEDULED MEDS WERE GIVEN PER ORDER. NO ASE NOTED. WILL CONTINUE TO MONITOR.
[2019-09-10] MEDS: ATORVASTATIN 20 MG TAB PO SCH (20:35)
--- NOTE | 2019-09-10 23:00 | NUR ---
CHECKED PATIENT. PATIENT SLEEPING RESPIRATION EVEN UNLABORED ON ROOM AIR. NO DISTRESS NOTED. WILL CONTINUE TO MONITOR.
[2019-09-11] VITALS: BP 112/68
--- NOTE | 2019-09-11 | NUR ---
VITALS WERE TAKEN. PATIENT IN STABLE CONDITION. NO DISTRESS NOTED. WILL CONTINUE TO MONITOR.
--- NOTE | 2019-09-11 02:05 | NUR ---
CHECKED PATIENT. PATIENT SLEEPING RESPIRATION EVEN UNLABORED ON ROOM AIR. NO DISTRESS NOTED, WILL CONTINUE TO MONITOR.
[2019-09-11] MEDS: NACL 0.9% 1,000 ML IV SCH ×2 (03:26→12:32)
[2019-09-11] MEDS: MEROPENEM 1,000 MG in NACL 0.9% 100 ML IV SCH (04:01)
--- NOTE | 2019-09-11 04:17 | NUR ---
PATIENT ASKED FOR WATER. PROVIDED WATER. WILL CONTINUE TO MONITOR.
--- NOTE | 2019-09-11 05:08 | NUR ---
PATIENT IV ACCIDENTALLY GOT PULLED OUT. NO ACTIVE BLEEDING NOTED. CANNULA TIP INTACT. INSERTED NEW ONE TO THE RIGHT HAND 22G. TOLERATED IT WELL.
--- NOTE | 2019-09-11 05:33 | NUR ---
CHECKED PATIENT BLOOD SUGAR. PATIENT BLOOD SUGAR 65. PATIENT IS AWAKE, ALERT, NO DISTRESS NOTED. GAVE ORANGE JUICE WITH SUGAR AND CARBS. WILL CONTINUE TO MONITOR.
[2019-09-11] MEDS: BLOOD GLUCOSE MONITORING 1 DEV DEV FS SCH ×2 (06:07→11:50)
--- NOTE | 2019-09-11 06:08 | NUR ---
RECHECKED PATIENT BLOOD SUGAR. PATIENT BLOOD SUGAR 104.
--- NOTE | 2019-09-11 07:12 | NUR ---
ENDORSED PATIENT TO DAY SHIFT NURSE. PATIENT IS IN STABLE CONDITION.
--- NOTE | 2019-09-11 07:13 | NUR ---
RECEIVED PATIENT FROM COATING MANAGER NURSE FOR CONTINUITY OF CARE. PATIENT IS AAOX4, SYRIAC/IRANIAN SPEAKING. RESPIRATIONS EVEN AND UNLABORED, ROOM AIR. VISIBLE CHEST RISE NOTED. NO EDEMA NOTED. ABDOMEN FLAT AND NONTENDER. LAST BM 09/11/2019. CCHO 60 GM DIET. SKIN WARM, DRY, AND INTACT. IV IN THE RIGHT HAND G22 RUNNING NS AT 120 ML/HR. PATIENT IS AMBULATORY. BED IN LOW POSITION. CALL LIGHT IS WITHIN REACH. WILL CONTINUE TO MONITOR
[2019-09-11 07:53] LABS: MAGNESIUM 2.2 mg/dL (1.8-2.4); PHOSPHORUS 3.2 mg/dL (2.5-4.9)
[2019-09-11 08:00] VITALS: BP 106/67
[2019-09-11 08:00] LABS: BASOPHILS # (AUTO) 0.1 K/uL (0.00-0.22); BASOPHILS % (AUTO) 1.2 % (0.0-2.0); EOSINOPHILS # (AUTO) 0.1 K/uL (0-0.4); EOSINOPHILS % (AUTO) 0.9 % (0.0-4.0); HEMATOCRIT 36.4 % (36-52); HEMOGLOBIN 12.1 g/dL (12.0-18.0); LYMPHOCYTES # (AUTO) 1.8 K/uL (2.0-11.5); LYMPHOCYTES % (AUTO) 15.7 % (20.5-51.1); MEAN CORPUSCULAR HEMOGLOBIN 29 pg (27-31); MEAN CORPUSCULAR HGB CONC 33 g/dL (33-37); MEAN CORPUSCULAR VOLUME 87.1 fL (80-94); MONOCYTES # (AUTO) 0.5 K/uL (0.8-1.0); MONOCYTES % (AUTO) 4.6 % (1.7-9.3); NEUTROPHILS # (AUTO) 8.7 K/uL (1.8-7.7); NEUTROPHILS % (AUTO) 77.6 % (42.2-75.2); PLATELET COUNT (AUTO) 623 K/uL (140-450); RED BLOOD CELL COUNT(AUTO) 4.17 MIL/uL (4.20-6.10); RED CELL DISTRIBUTION WIDTH 13.1 % (11.6-13.7); WHITE BLOOD COUNT (AUTO) 11.2 K/uL (4.8-10.8)
[2019-09-11] MEDS: CALCIUM CARB/VIT-D 500 MG/200 IU 1 TAB PO SCH (08:19)
[2019-09-11] MEDS: LACTOBACILLUS RHAMNOSUS GG 1 EACH CAP PO SCH (08:20)
[2019-09-11] MEDS: MAGNESIUM CHLORIDE 64 MG TABEC PO SCH (08:20)
[2019-09-11] MEDS: SODIUM PHOS / POTASSIUM PHOS 1 PKT PDR PO SCH (08:20)
[2019-09-11] MEDS: glipiZIDE 10 MG TAB PO SCH (08:23)
[2019-09-11] MEDS: metFORMIN 500 MG TAB PO SCH (08:23)
--- NOTE | 2019-09-11 08:23 | NUR ---
GIVEN MORNING MEDICATIONS PO. GIVEN HEPARIN IN THE RIGHT UPPER ARM. PLATELET IS 623. PATIENT TOLERATED WELL. BLOOD GLUCOSE IS 128. GIVEN CHRISTIAN LANTUS IN THE ABDOMEN. PATIENT TOLERATED WELL. EXPLAINED TO PATIENT MEDS AND SIDE EFFECTS PATIENT VERBALIZED UNDERSTANDING. BED IN LOW POSITION. CALL LIGHT IS WITHIN REACH. WILL CONTINUE TO MONITOR.L PATIENT PULLED IV. WILL START A NEW ONE.
[2019-09-11] MEDS: PSYLLIUM 12.2 GM/PKT PO SCH (08:24)
[2019-09-11] MEDS: POLYETHYLENE GLYCOL 17 GM/PKT PO SCH (08:24)
[2019-09-11] MEDS: INSULIN LANTUS 100 UNITS/ML 10 ML VIAL SUBQ SCH (08:34)
[2019-09-11] MEDS: LISINOPRIL 10 MG TAB PO SCH (08:34)
[2019-09-11] MEDS: METOPROLOL 25 MG TAB PO SCH (08:35)
[2019-09-11 08:57] LABS: ANION GAP 16.3 (8-16); CARBON DIOXIDE 26.6 mmol/L (21-32); CREATININE 0.9 mg/dL (0.6-1.3); POTASSIUM 4.9 mmol/L (3.5-5.1)
--- NOTE | 2019-09-11 10:50 | NUR ---
STARTED IV IN THE RIGHT FOREARM G22. FLUSHED WELL. PATIENT TOLERATED WELL
[2019-09-11] MEDS ORDERED: METO25TA PO (10:58)
[2019-09-11] MEDS ORDERED: LANTUS SUBQ (10:58)
[2019-09-11] MEDS ORDERED: LISI10TA11 PO (10:58)
[2019-09-11] MEDS ORDERED: ATOR20TA40 PO (10:58)
[2019-09-11 11:40] VITALS: BP 106/67
[2019-09-11] MEDS ORDERED: INFLUENZA VACCINE QUAD 0.5 ML SYR IMVAC PRN (11:50)
--- NOTE | 2019-09-11 12:07 | NUR ---
GIVEN FLU SHOT IN THE LEFT UPPER ARM. EXPLAINED TO PATIENT MED. PATIENT VERBALIZED UNDERSTANDING. BED IN LOW POSITION. CALL LIGHT IS WITHIN REACH.
--- NOTE | 2019-09-11 12:57 | NUR ---
GIVEN DISCHARGE INSTRUCTION. PATIENT NEEDS TO SEE PCP THIS WEDNESDAY AT 8:45AM. PATIENT NEEDS TO EXERCISE 30 MINS QDAY. NEEDS TO AVOID FATTY FOODS, SUGARY, AND OILY FOODS. PATIENT NEEDS TO GET PRESCRIBED GLUCOMETER AT PREFERRED PHARMACY. PATIENT VERBALIZED UNDERSTANDING. PATIENT SIGNED DISCHARGE PAPER
--- NOTE | 2019-09-11 12:58 | NUR ---
DISCONTINUED IV. MINIMAL BLEEDING. SECURED WITH 2X2 AND TAPE.
--- NOTE | 2019-09-11 13:05 | NUR ---
DISCHARGED PATIENT ON FOOT. FAMILY IS WITH PATIENT. PATIENT IS IN STABLE CONDITION.
== END 2019-09-11 13:05 | disposition home or self-care (01) | DRG 720 ==
LOC: MED 14:03 → MTU 17:12
PROVIDERS: ADMIT General Practice; ATTEND General Practice
DX: A41.9 Sepsis, unspecified organism (principal); E43 Unspecified severe protein-calorie malnutrition; E11.21 Type 2 diabetes mellitus with diabetic nephropathy; E11.65 Type 2 diabetes mellitus with hyperglycemia; E83.39 Other disorders of phosphorus metabolism; R16.1 Splenomegaly, not elsewhere classified; N30.90 Cystitis, unspecified without hematuria; E87.1 Hypo-osmolality and hyponatremia; B96.20 Unspecified Escherichia coli [E. coli] as the cause of diseases classified elsewhere; Z16.12 Extended spectrum beta lactamase (ESBL) resistance; E87.8 Other disorders of electrolyte and fluid balance, not elsewhere classified; E66.9 Obesity, unspecified; K59.00 Constipation, unspecified; N41.1 Chronic prostatitis; E78.2 Mixed hyperlipidemia; R31.9 Hematuria, unspecified; N20.0 Calculus of kidney; Z68.30 Body mass index [BMI] 30.0-30.9, adult; Z79.84 Long term (current) use of oral hypoglycemic drugs; Z23 Encounter for immunization
CPT/HCPCS: 36415; 36600; 71045; 74018; 76700; 80048; 80053; 80305; 81001; 82140; 82150; 82803; 82948; 83036; 83605; 83615; 83690; 83735; 83880; 84100; 84134; 84443; 84484; 85025; 85610; 85730; 87040; 87081; 87086; 87186; 87804; 93005; 96365; 96372; 96375; 99291; G0482; J0696; J1644; J1815; J1885; J2185; J2270; J2405; J2543; J3480; J7030; J7060; Q0092